=== PATIENT | female | born 1990 | race Caucasian/White ===

== ENCOUNTER 2018-06-07 17:27 | Inpatient (IN) ==
--- NOTE | 2018-06-07 17:59 | Emergency Department Note ---
ED Disposition Clinical Impression: Pyelonephritis, Elevated liver enzymes, Hyperglycemia Disposition: Still a Patient Condition on Discharge: Fair - Critical Care Critical Care Time: No Attestation: On 06/07/18, the high probability of a clinically significant, sudden or life threatening deterioration of the following system(s) required my full and direct attention, intervention and personal management. The time I documented below is in addition to time spent performing reported procedures but includes the following listed in this critical care notation. Medical Decision Making - Ravi Inquiry Pt receiving controlled substance: No Vital Signs: 06/07/18 17:36 06/07/18 17:44 06/07/18 17:58 Temperature 100.5 F H 100.5 F H 100.8 F H Temperature Source Oral Oral Oral Pulse Rate [Left Radial] 135 H 144 H 138 H Respiratory Rate 20 20 18 Blood Pressure [Right Arm] 115/76 121/84 144/78 Blood Pressure Mean [Right Arm] 89 96 100 Blood Pressure Source [Right Arm] Automatic Cuff Automatic Cuff Automatic Cuff Blood Pressure Position [Right Arm] Sitting Sitting Sitting 02 Sat by Pulse Oximetry 96 99 97 Oxygen Delivery Method Room Air Room Air Room Air 06/07/18 18:28 Temperature 100 F H Temperature Source Oral Pulse Rate [Left Radial] 143 H Respiratory Rate 14 Blood Pressure [Right Arm] 149/84 Blood Pressure Mean [Right Arm] 105 Blood Pressure Source [Right Arm] Automatic Cuff Blood Pressure Position [Right Arm] Sitting 02 Sat by Pulse Oximetry 96 Oxygen Delivery Method Room Air - Lab Data Lab Results 06/07/18 17:44: Influenza Type A Ag Negative, Influenza Type B Ag Negative 06/07/18 17:57: Strep Scn Rapid [facility] Negative 06/07/18 18:15: WBC 4.0 L, RBC 5.09, Hgb 14.5, Hct 42.5, MCV 83.5, MCH 28.4, MCHC 34.1, RDW 12.6, Plt Count 183, MPV 8.5, Neut % (Auto) 86.0 H, Lymph % (Auto) 10.6, [place] % (Auto) 2.9, Eos % (Auto) 0.5, Baso % (Auto) 0.1, Neut # (Auto) 3.4, Lymph # (Auto) 0.4 L, [place] # (Auto) 0.1, Eos # (Auto) 0.0, Baso # (Auto) 0.0, Total Counted 100, Neutrophils % (Manual) 44, Band Neutrophils % 40.0 H, Lymphocytes % (Manual) 16, Platelet Estimate Normal, RBC Morphology Normal 06/07/18 18:15: Sodium 128 L, Potassium 3.6, Chloride 92 L, Carbon Dioxide 26, Anion Gap 13.6, BUN 12, Creatinine 1.07 H, Estimated Creat Clear 76, Estimated GFR 62, Est GFR ( Amer) 75, Glucose 577 H*, Calcium 9.2, Total Bilirubin 2.0 H, AST 145 H, ALT 160 H, Alkaline Phosphatase 303 H, Total Protein 8.0, Albumin 3.1 L, Globulin 4.9 H, Albumin/Globulin Ratio 0.6 L 06/07/18 18:15: Lactate 1.9 06/07/18 18:15: Hemoglobin A1c 12.6 H 06/07/18 18:15: Acetone Level None detected 06/07/18 18:15: Lipase 147 06/07/18 18:48: VBG pH 7.34, VBG pCO2 46.8, VBG pO2 46.3 H, VBG HCO3 24.9, VBG Total CO2 26.3, VBG O2 Saturation 81.3 H, VBG Base Excess -0.9 06/07/18 19:19: Urine Color Yellow, Urine Appearance Sl cloudy, Urine pH 6.0, Ur Specific [place] 1.010, Urine Protein Trace, Urine Glucose (UA) 3+, Urine Ketones 2+, Urine Blood 2+, Urine Nitrate Positive, Urine Bilirubin Negative, U rine Urobilinogen 0.2, Ur Leukocyte Esterase Negative, Urine RBC 10-20, Urine WBC 20-50, Ur Squamous Epith Cells 5-10, Urine Bacteria 2+ 06/07/18 19:19: Urine HCG, Qual Negative Result diagrams: 06/07/18 18:15 06/07/18 18:15 Orders (Tests/Meds): ED MEDICATIONS Generic Name Dose Route Start Last Admin Trade Name Freq PRN Reason Stop Dose Admin Ceftriaxone Sodium 1 gm/ 50 mls @ 100 mls/hr 06/07/18 20:00 Sodium Chloride IV 06/21/18 19:59 Q24H GREGORY Protocol Discontinued Medications Generic Name Dose Route Start Last Admin Trade Name Freq PRN Reason Stop Dose Admin Ibuprofen 600 mg 06/07/18 18:06 06/07/18 19:51 Motrin 600mg Tablet PO 06/07/18 18:07 600 mg ONCE ONE Administration Insulin Human Lispro 10 unit 06/07/18 18:48 06/07/18 19:03 Humalog 100 Units/Ml 3ml Vial (Ssi) SQ 06/07/18 18:49 10 unit ONCE ONE Administration Sodium Chloride 1,000 ml 06/07/18 18:08 06/07/18 19:03 Sod Chlor 0.9% 1000ml Bag IV 06/07/18 18:09 1,000 ml BOLUS ONE Administration ORDERS Category Date Time Status CT abdomen pelvis wo con Stat Cat Scan 06/07/18 19:02 Ordered Hepatitis Panel (4) Stat Lab 06/07/18 18:15 Received Urinalysis and Microscopic Stat Lab 06/07/18 19:19 Ordered Blood Culture Stat Micro 06/07/18 18:15 Received Strep Screen Confirmation Stat Micro 06/07/18 17:57 Received Urine Culture Stat Micro 06/07/18 19:19 Received Venous Blood Gas Stat RT 06/07/18 18:38 Ordered - Physician Consults Physician Consulted: Penny Time: 19:45 Reason -: Admission Comment/Response: Agrees to admit the patient to the hospital. We discussed the patient's clinical information, including history, exam, laboratory and radiology results and ED course. Per hospital procedure, I will write temporary bridge inpatient orders on the patient. Specific orders requested by the admitting physician: Hydration, Rocephin, sliding scale insulin, gallbladder ult rasound Medical Decision Narrative: 8:00 PM: Abdominal CT scan pending at time of shift change. Admission orders have been written. Dr. Mantilla will follow-up CT scan results and contact Dr. Francis if any significant findings. General Adult HPI - General Stated complaint: Fever, Body aches, Chills, Dizzy Time Seen by Provider: 06/07/18 17:59 Mode of Arrival: Family Vehicle Source of Information: Patient Limitations: No Limitations Description of Symptoms (Recalled from ER Triage Doc. by RN): C/O FEVER,CHILLS,BODY ACHES WITH COUGH AND CHEST DISCOMFORT X 3 DAYS - History of Present Illness HPI narrative: 3 day history of lightheadedness and chills. Has urine frequency, minimal rhinorrhea and cough. No dysuria. No sore throat. No abdominal pain, vomiting, or diarrhea. No known exposures. She took TheraFlu 1 hour ago. She has diabetes. She has not taken any of her medications in months, getting close to a year. Noncompliant with her medications because she is unable to see her doctor due to money issues. She was on insulin and Janumet. She sees Dr. Francis. - Related Data Home Medications Medication Instructions Recorded Confirmed No Known Home Medications 06/07/18 06/07/18 Allergies Allergy/AdvReac Type Severity Reaction Status Date / Time No Known Allergies Allergy Verified 06/07/18 17:48 [facility] History I have reviewed the patient's past medical history: Yes Medical History: Reports:: Diabetes Mellitus Type 2 Denies:: Cancer, Diabetes Mellitus Type 1, MRSA Laterality Cases: Bilateral: Tonsillectomy Amputation: No - Social History Alcohol Intake: never - Psychiatric History Expresses thoughts of harming self/others: None Suicide Plan Description: No Plan ROS Obtained: Yes All systems reviewed & no additional complaints - Constitutional Constitutional: Reports chills, Reports fever(s) - ENT Ears, Nose, Mouth, and Throat: Reports nasal discharge, Denies sore throat - Cardiovascular Cardiovascular: Reports chest pain - Respiratory Respiratory: Yes cough, No dyspnea - Gastrointestinal Gastrointestingal: Denies: abdominal pain, diarrhea, nausea, vomiting - Genitourinary Female Genitourinary: Denies dysuria, Denies flank pain, Reports urinary frequency - Musculoskeletal Musculoskeletal: Reports back pain (upper) - Integumentary/Breasts Skin/Breast: Denies rash Physical Exam - General General appearance: alert, in no apparent distress - Head Head exam: atraumatic, normocephalic, normal inspection - Eye Eye exam: Present: normal appearance, PERRL, EOMI - ENT ENT exam: Present: normal exam, normal oropharynx, mucous membranes moist, TM's normal bilaterally, normal external ear exam - Neck Neck exam: Present: normal inspection, full ROM, trachea midline. Absent: meningismus, lymphadenopathy - Chest Chest inspection: Present: normal inspection, symmetric chest wall rise. Absent: tenderness - Respiratory Respiratory exam: Present: normal lung sounds bilaterally. Absent: respiratory distress - Cardiovascular Cardiovascular exam: Present: regular rate, normal rhythm. Absent: JVD - Abdominal Exam Abdominal exam: Present: soft, normal bowel sounds. Absent: distention, tenderness, guarding - Extremities Exam Extremities exam: Present: normal inspection, full ROM, normal capillary refill. Absent: calf tenderness - Back Exam Back exam: Present: normal inspection. Absent: tenderness, CVA tenderness (R), CVA tenderness (L) - Neurological Exam Neurological exam: Present: alert, oriented X3, CN II-XII intact. Absent: motor sensory deficit - Psychiatric Psychiatric exam: Present: normal affect, normal mood - Skin Skin exam: Present: warm, dry, intact, normal color. Absent: rash - Lymphatic Lymphatic Findings: no adenopathy
[2018-06-07 18:27] LABS: Basophils % 0.1 % (0.1-2.0); Eosinophils % 0.5 % (0.1-12.0); Hematocrit 42.5 % (37.0-47.0); Hemoglobin 14.5 g/dL (12.2-16.2); Lymphocytes # 0.4 K/mm3 (0.7-4.5); Lymphocytes % 10.6 K/mm3 (10-50); Mean Corpuscular HGB Conc 34.1 g/dL (31.8-35.4); Mean Corpuscular Hemoglobin 28.4 pg (27.0-31.2); Mean Corpuscular Volume 83.5 fl (81-99); Mean Platelet Volume 8.5 fl (7.4-10.4); Monocytes # 0.1 K/mm3 (0.1-1.0); Monocytes % 2.9 % (1.7-9.3); Neutrophils # 3.4 K/mm3 (1.8-7.8); Platelet Count 183 K/mm3 (142-424); Red Blood Count 5.09 M/mm3 (4.20-5.40); Red Cell Distribution Width 12.6 % (11.5-17.5)
[2018-06-07 18:35] LABS: Albumin Level 3.1 gm/dL (3.4-5.0); Albumin/Globulin Ratio 0.6 (1.1-1.8); Anion Gap 13.6 mEq/L (5-15); Calcium 9.2 mg/dL (8.5-10.1); Globulin 4.9 gm/dl (1.3-3.2); Potassium 3.6 mmoL/L (3.5-5.1)
[2018-06-07 18:50] LABS: VBG Base Excess -0.9 mmol/L (-2.4-2.3); VBG HCO3 24.9 mmol/L (23-30); VBG Oxygen Saturation 81.3 % (50-70); VBG PCO2 46.8 mmol/L (35-51); VBG PH 7.34 mmol/L (7.31-7.41); VBG PO2 46.3 mmol/L (28-40); VBG Total CO2 26.3 mmol/L (23-27)
[2018-06-07 19:04] LABS: Lymphocytes % 16 % (10-50); Neutrophils % 44 % (42-76); RBC Morphology Normal; Total Cells Counted 100
[2018-06-07 19:24] LABS: Appearance,Urine SL CLOUDY (Clear); Bilirubin,Urine Negative (Negative); Blood, Urine 2+ (Negative); Color,Urine YELLOW (Yellow); Glucose,Urine (UA) 3+ (Negative); Ketones,Urine 2+ (Negative); Leukocyte Esterase,Urine Negative (Negative); Microscopic, Urine URINE MICROSCOPIC (MICROSCOPIC); Protein,Urine TRACE (Negative); Urobilinogen,Urine 0.2 EU/dl (0.2)
[2018-06-07 19:28] LABS: Bacteria,Urine 2+ /lpf; WBC,Urine 20-50 #/hpf (0-3)
[2018-06-08 06:15] LABS: Basophils % 0.1 % (0.1-2.0); Eosinophils % 0.2 % (0.1-12.0); Hematocrit 33.9 % (37.0-47.0); Lymphocytes # 0.6 K/mm3 (0.7-4.5); Lymphocytes % 13.9 K/mm3 (10-50); Mean Corpuscular HGB Conc 36.8 g/dL (31.8-35.4); Mean Corpuscular Hemoglobin 29.8 pg (27.0-31.2); Mean Corpuscular Volume 81.1 fl (81-99); Mean Platelet Volume 8.7 fl (7.4-10.4); Monocytes # 0.2 K/mm3 (0.1-1.0); Monocytes % 3.4 % (1.7-9.3); Neutrophils # 3.7 K/mm3 (1.8-7.8); Neutrophils % 82.5 % (37.0-80.0); Platelet Count 145 K/mm3 (142-424); Red Blood Count 4.17 M/mm3 (4.20-5.40); Red Cell Distribution Width 12.6 % (11.5-17.5); White Blood Count 4.5 K/mm3 (4.8-10.8)
[2018-06-08 06:26] LABS: Hemoglobin 12.5 g/dL (12.2-16.2)
[2018-06-08 06:47] LABS: Albumin Level 2.4 gm/dL (3.4-5.0); Albumin/Globulin Ratio 0.8 (1.1-1.8); Anion Gap 13.5 mEq/L (5-15); Globulin 3.2 gm/dl (1.3-3.2); Potassium 3.5 mmoL/L (3.5-5.1); Total Protein,Serum 5.6 gm/dL (6.4-8.2)
[2018-06-08 06:59] LABS: Calcium 7.8 mg/dL (8.5-10.1)
--- NOTE | 2018-06-08 08:17 | History & Physical Report ---
*Admission Date: 06/07/18 *Chief complaint: Nausea/weakness/fever *History of present illness: 27-year-old white female with type 2 diabetes who has not been to my office in over 9 months and has run out of her medications during that time -she states simply because "I just have not had the time." She also reports a family history of noncompliance and "my family is just hard headed." Regardless, over the past week she has been feeling poorly. Has had fevers, abdominal pain, vomiting with right-sided back pain. Came to the emergency department. Found to be tachycardic, creatinine elevation over baseline, CT scan of the abdomen consistent with right-sided pyelonephritis. Admitted to hospital for IV therapy. Noted to be hyperglycemic but without evidence of acidosis or ketosis in her serum. [facility] History I have reviewed the patient's past medical history: Yes Medical History: Reports:: Diabetes Mellitus Type 2 Denies:: Cancer, Diabetes Mellitus Type 1, MRSA Laterality Cases: Bilateral: Tonsillectomy Other Surgeries: Yes: , Hernia Repair Amputation: No - *Social History Educational Level: Completed High School Smoking Status: Never smoker Alcohol Intake: never Occupational Status: employed - Psychiatric History Expresses thoughts of harming self/others: None Suicide Plan Description: No Plan Review of Systems - Review of Systems Review of systems:: pertinent systems reviewed and negative unless documented below - Constitutional Reports anorexia, Reports body ache(s), Reports chills, Reports fever(s) - Eyes Denies blind spots, Denies blurry vision - ENT Denies abnormal hearing - *Cardiovascular Reports excessive sweating, Denies chest pain, Denies chest pain with activity, Denies shortness of breath with activity, Denies generalized swelling, Denies irregular heart rhythm, Denies leg swelling - *Respiratory Denies change in phlegm color, Denies chest congestion, Denies cough - *Gastrointestinal Reports abdominal pain Meds Home Medications Medication Instructions Recorded Confirmed Type No Known Home Medications 06/07/18 06/07/18 History Allergies Allergy/AdvReac Type Severity Reaction Status Date / Time No Known Allergies Allergy Verified 06/07/18 17:48 Exam Vital signs and Labs for Last 24 Hours: Temp Pulse Resp BP Pulse Ox 98.3 F 126 H 16 117/70 94 L 06/08/18 07:42 06/08/18 07:42 06/08/18 07:42 06/08/18 07:42 06/08/18 07:42 Laboratory Results - last 24 hr 06/07/18 17:44: Influenza Type A Ag Negative, Influenza Type B Ag Negative 06/07/18 17:57: Strep Scn Rapid Clinic Negative 06/07/18 18:15: WBC 4.0 L, RBC 5.09, Hgb 14.5, Hct 42.5, MCV 83.5, MCH 28.4, MCHC 34.1, RDW 12.6, Plt Count 183, MPV 8.5, Neut % (Auto) 86.0 H, Lymph % (Auto) 10.6, [place] % (Auto) 2.9, Eos % (Auto) 0.5, Baso % (Auto) 0.1, Neut # (Auto) 3.4, Lymph # (Auto) 0.4 L, [place] # (Auto) 0.1, Eos # (Auto) 0.0, Baso # (Auto) 0.0, Total Counted 100, Neutrophils % (Manual) 44, Band Neutrophils % 40.0 H, Lymphocytes % (Manual) 16, Platelet Estimate Normal, RBC Morphology Normal 06/07/18 18:15: Sodium 128 L, Potassium 3.6, Chloride 92 L, Carbon Dioxide 26, Anion Gap 13.6, BUN 12, Creatinine 1.07 H, Estimated Creat Clear 76, Estimated GFR 62, Est GFR ( Amer) 75, Glucose 577 H*, Calcium 9.2, Total Bilirubin 2.0 H, AST 145 H, ALT 160 H, Alkaline Phosphatase 303 H, Total Protein 8.0, Albumin 3.1 L, Globulin 4.9 H, Albumin/Globulin Ratio 0.6 L 06/07/18 18:15: Lactate 1.9 06/07/18 18:15: Hemoglobin A1c 12.6 H 06/07/18 18:15: Acetone Level None detected 06/07/18 18:15: Lipase 147 06/07/18 18:48: VBG pH 7.34, VBG pCO2 46.8, VBG pO2 46.3 H, VBG HCO3 24.9, VBG Total CO2 26.3, VBG O2 Saturation 81.3 H, VBG Base Excess -0.9 06/07/18 19:19: Urine Color Yellow, Urine Appearance Sl cloudy, Urine pH 6.0, Ur Specific [place] 1.010, Urine Protein Trace, Urine Glucose (UA) 3+, Urine Ketones 2+, Urine Blood 2+, Urine Nitrate Positive, Urine Bilirubin Negative, Urine Urobilinogen 0.2, Ur Leukocyte Esterase Negative, Urine RBC 10-20, Urine WBC 20-50, Ur Squamous Epith Cells 5-10, Urine Bacteria 2+ 06/07/18 19:19: Urine HCG, Qual Negative 06/07/18 21:16: POC Glucose 270 H 06/08/18 03:28: POC Glucose 173 H 06/08/18 05:55: WBC 4.5 L, RBC 4.17 L, Hgb 12.5 D, Hct 33.9 L, MCV 81.1, MCH 29.8, MCHC 36.8 H, RDW 12.6, Plt Count 145, MPV 8.7, Neut % (Auto) 82.5 H, Lymph % (Auto) 13.9, [place] % (Auto) 3.4, Eos % (Auto) 0.2, Baso % (Auto) 0.1, Neut # (Auto) 3.7, Lymph # (Auto) 0.6 L, [place] # (Auto) 0.2, Eos # (Auto) 0.0, Baso # (Auto) 0.0 06/08/18 05:55: Sodium 135 L, Potassium 3.5, Chloride 103, Carbon Dioxide 22, Anion Gap 13.5, BUN 10, Creatinine 0.52 L D, Estimated Creat Clear 166, Estimated GFR 143, Est GFR ( Amer) 172 D, Glucose 228 H D, Calcium 7.8 L D, Total Bilirubin 1.0, AST 86 H D, ALT 113 H D, Alkaline Phosphatase 266 H, Total Protein 5.6 L D, Albumin 2.4 L D, Globulin 3.2, Albumin/Globulin Ratio 0.8 L 06/08/18 06:00: POC Glucose 212 H I & O for Last 24 hours: Intake & Output 06/05/18 06/06/18 06/07/18 06/08/18 11:59 11:59 11:59 11:59 Intake Total 1188 / 1188 Balance 1188 / 1188 Weight 141 lb Microbiology Reports for the Last 24 Hours: Microbiology 06/07/18 19:19 Urine,Clean Catch Urine Culture - Preliminary Gram Negative Rods Narrative: Patient is pleasant, alert, oriented. This morning is in no distress. Lungs have good air movement and is clear. Heart rate regular without murmurs. ENT exam with clear oropharynx, no JVD, no scleral icterus. She has right-sided CVA tenderness. Left side is clear. No abdominal masses noted. No distal peripheral edema or capillary refill issues. Cranial nerves intact, peripheral neurologic exam unremarkable. Assessment and Plan (1) Medical non-compliance Current visit: Yes Status: Acute Category: Medical Code(s): Z91.19 - Patient's noncompliance with other medical treatment and regimen We will encourage her to be more diligent with follow-up in meds on discharge. (2) Elevated liver enzymes Current visit: Yes Status: Acute Category: Medical Code(s): R74.8 - Abnormal levels of other serum enzymes Improving after hydration. Follow tomorrow. Gallbladder ultrasound and liver ultrasound are unremarkable (3) Hyperglycemia Current visit: Yes Status: Acute Category: Medical Code(s): R73.9 - Hyperglycemia, unspecified Sliding scale insulin. Transition to oral therapy on discharge (4) Pyelonephritis Current visit: Yes Status: Acute Category: Medical Code(s): N12 - Tubulo- interstitial nephritis, not specified as acute or chronic Gram-negative rods on urine culture. Continue IV therapy. Adjust therapy as needed based on culture
--- NOTE | 2018-06-08 08:22 | Progress Note ---
Internal Medicine - PN: Subj *Date: 06/08/18 *Time: 08:22 Interval history: After previous document dictated blood cultures report called from lab, positive for gram-negative rods with PCR showing Klebsiella. Exam Vital signs and Labs for Last 24 Hours: Temp Pulse Resp BP Pulse Ox 98.3 F 126 H 16 117/70 94 L 06/08/18 07:42 06/08/18 07:42 06/08/18 07:42 06/08/18 07:42 06/08/18 07:42 Laboratory Results - last 24 hr 06/07/18 17:44: Influenza Type A Ag Negative, Influenza Type B Ag Negative 06/07/18 17:57: Strep Scn Rapid Clinic Negative 06/07/18 18:15: WBC 4.0 L, RBC 5.09, Hgb 14.5, Hct 42.5, MCV 83.5, MCH 28.4, MCHC 34.1, RDW 12.6, Plt Count 183, MPV 8.5, Neut % (Auto) 86.0 H, Lymph % (Auto) 10.6, [place] % (Auto) 2.9, Eos % (Auto) 0.5, Baso % (Auto) 0.1, Neut # (Auto) 3.4, Lymph # (Auto) 0.4 L, [place] # (Auto) 0.1, Eos # (Auto) 0.0, Baso # (Auto) 0.0, Total Counted 100, Neutrophils % (Manual) 44, Band Neutrophils % 40.0 H, Lymphocytes % (Manual) 16, Platelet Estimate Normal, RBC Morphology Normal 06/07/18 18:15: Sodium 128 L, Potassium 3.6, Chloride 92 L, Carbon Dioxide 26, Anion Gap 13.6, BUN 12, Creatinine 1.07 H, Estimated Creat Clear 76, Estimated GFR 62, Est GFR ( Amer) 75, Glucose 577 H*, Calcium 9.2, Total Bilirubin 2.0 H, AST 145 H, ALT 160 H, Alkaline Phosphatase 303 H, Total Protein 8.0, Albumin 3.1 L, Globulin 4.9 H, Albumin/Globulin Ratio 0.6 L 06/07/18 18:15: Lactate 1.9 06/07/18 18:15: Hemoglobin A1c 12.6 H 06/07/18 18:15: Acetone Level None detected 06/07/18 18:15: Lipase 147 06/07/18 18:48: VBG pH 7.34, VBG pCO2 46.8, VBG pO2 46.3 H, VBG HCO3 24.9, VBG Total CO2 26.3, VBG O2 Saturation 81.3 H, VBG Base Excess -0.9 06/07/18 19:19: Urine Color Yellow, Urine Appearance Sl cloudy, Urine pH 6.0, Ur Specific [place] 1.010, Urine Protein Trace, Urine Glucose (UA) 3+, Urine Ketones 2+, Urine Blood 2+, Urine Nitrate Positive, Urine Bilirubin Negative, Urine Urobilinogen 0.2, Ur Leukocyte Esterase Negative, Urine RBC 10-20, Urine WBC 20-50, Ur Squamous Epith Cells 5-10, Urine Bacteria 2+ 06/07/18 19:19: Urine HCG, Qual Negative 06/07/18 21:16: POC Glucose 270 H 06/08/18 03:28: POC Glucose 173 H 06/08/18 05:55: WBC 4.5 L, RBC 4.17 L, Hgb 12.5 D, Hct 33.9 L, MCV 81.1, MCH 29.8, MCHC 36.8 H, RDW 12.6, Plt Count 145, MPV 8.7, Neut % (Auto) 82.5 H, Lymph % (Auto) 13.9, [place] % (Auto) 3.4, Eos % (Auto) 0.2, Baso % (Auto) 0.1, Neut # (Auto) 3.7, Lymph # (Auto) 0.6 L, [place] # (Auto) 0.2, Eos # (Auto) 0.0, Baso # (Auto) 0.0 06/08/18 05:55: Sodium 135 L, Potassium 3.5, Chloride 103, Carbon Dioxide 22, Anion Gap 13.5, BUN 10, Creatinine 0.52 L D, Estimated Creat Clear 166, Estimated GFR 143, Est GFR ( Amer) 172 D, Glucose 228 H D, Calcium 7.8 L D, Total Bilirubin 1.0, AST 86 H D, ALT 113 H D, Alkaline Phosphatase 266 H, Total Protein 5.6 L D, Albumin 2.4 L D, Globulin 3.2, Albumin/Globulin Ratio 0.8 L 06/08/18 06:00: POC Glucose 212 H I & O for Last 24 hours: Intake & Output 06/05/18 06/06/18 06/07/18 06/08/18 11:59 11:59 11:59 11:59 Intake Total 1548 / 1548 Balance 1548 / 1548 Weight 142 lb 2 oz Microbiology Reports for the Last 24 Hours: Microbiology 06/07/18 18:15 Blood Blood Culture - Preliminary Klebsiella pneumoniae 06/07/18 19:19 Urine,Clean Catch Urine Culture - Preliminary Gram Negative Rods Assessment and Plan (1) Medical non-compliance Current visit: Yes Status: Acute Category: Medical Code(s): Z91.19 - Patient's noncompliance with other medical treatment and regimen (2) Elevated liver enzymes Current visit: Yes Status: Acute Category: Medical Code(s): R74.8 - Abnormal levels of other serum enzymes (3) Hyperglycemia Current visit: Yes Status: Acute Category: Medical Code(s): R73.9 - Hyperglycemia, unspecified (4) Pyelonephritis Current visit: Yes Status: Acute Category: Medical Code(s): N12 - Tubulo- interstitial nephritis, not specified as acute or chronic (5) Bacteremia due to Klebsiella pneumoniae Current visit: Yes Status: Acute Category: Medical Code(s): R78.81 - Bacteremia Continue current antibiotics given patient's improvement. Await sensitivity panels
--- NOTE | 2018-06-08 11:26 | Pharmacy Consult Notes ---
[facility] Pharmacy VTE Monitoring - Patient Demographics Admission date: 06/07/18 Report Date: 06/08/18 Time: 11:26 Allergies/Adverse Reactions: Patient Allergies No Known Allergies Allergy (Verified 06/07/18 17:48) Height: 1.73 m Weight: 64.467 kg Patient Problems: Current Active Problems Pyelonephritis (Acute) Elevated liver enzymes (Acute) Hyperglycemia (Acute) Medical non-compliance (Acute) Bacteremia due to Klebsiella pneumoniae (Acute) - VTE Risk Labs: VTE Related Lab Results Hgb 12.5 g/dL (12.2-16.2) D 06/08/18 05:55 Hct 33.9 % (37.0-47.0) L 06/08/18 05:55 Plt Count 145 K/mm3 (142-424) 06/08/18 05:55 BUN 10 mg/dL (7-18) 06/08/18 05:55 Creatinine 0.52 mg/dL (0.55-1.02) L D 06/08/18 05:55 Estimated Creat Clear 166 mL/min (0-300) 06/08/18 05:55 Was VTE Risk Assessment Performed: Yes VTE Score: 1 - Prophylaxis VTE Prophylaxis Ordered?: Yes Types of VTE Prophylaxis: TEDS Knee High Location of Applied Device: Bilateral Lower Extremeties
--- NOTE | 2018-06-09 08:27 | Progress Note ---
Internal Medicine - PN: Subj *Date: 06/09/18 *Time: 08:26 Interval history: Patient feels somewhat better. Wishes to be discharged home. Is walking around the room and no pain with ambulation. Exam Vital signs and Labs for Last 24 Hours: Temp Pulse Resp BP Pulse Ox 99.0 F 99 H 18 142/95 98 06/09/18 07:42 06/09/18 07:42 06/09/18 07:42 06/09/18 07:42 06/09/18 07:42 Laboratory Results - last 24 hr 06/07/18 19:19: Urine Color Yellow, Urine Appearance Sl cloudy, Urine pH 6.0, Ur Specific [place] 1.010, Urine Protein Trace, Urine Glucose (UA) 3+, Urine Ketones 2+, Urine Blood 2+, Urine Nitrate Positive, Urine Bilirubin Negative, Urine Urobilinogen 0.2, Ur Leukocyte Esterase Negative, Urine RBC 10-20, Urine WBC 20-50, Ur Squamous Epith Cells 5-10, Urine Bacteria 2+ 06/08/18 11:16: POC Glucose 258 H 06/08/18 16:30: POC Glucose 294 H 06/08/18 20:40: POC Glucose 259 H 06/09/18 06:10: POC Glucose 177 H I & O for Last 24 hours: Intake & Output 06/06/18 06/07/18 06/08/18 06/09/18 11:59 11:59 11:59 11:59 Intake Total 1548 / 1548 2790 / 2790 Balance 1548 / 1548 2790 / 2790 Weight 142 lb 2 oz Microbiology Reports for the Last 24 Hours: Microbiology 06/07/18 17:57 Throat Group A Streptococcus Screen (PERLA) - Final Negative for Group A Streptococcus. 06/07/18 18:15 Blood Blood Culture - Preliminary Klebsiella pneumoniae Gram Negative Rods 06/07/18 19:19 Urine,Clean Catch Urine Culture - Final Klebsiella pneumoniae 06/07/18 18:15 Blood Blood Culture - Preliminary Narrative: Oropharynx clear, no JVD. Lungs are clear, no edema noted. Pulse rate regular. CVA tenderness has improved Assessment and Plan (1) Medical non-compliance Current visit: Yes Status: Acute Category: Medical Code(s): Z91.19 - Patient's noncompliance with other medical treatment and regimen (2) Elevated liver enzymes Current visit: Yes Status: Acute Category: Medical Code(s): R74.8 - Abnormal levels of other serum enzymes (3) Hyperglycemia Current visit: Yes Status: Acute Category: Medical Code(s): R73.9 - Hyperglycemia, unspecified (4) Pyelonephritis Current visit: Yes Status: Acute Category: Medical Code(s): N12 - Tubulo- interstitial nephritis, not specified as acute or chronic (5) Bacteremia due to Klebsiella pneumoniae Current visit: Yes Status: Acute Category: Medical Code(s): R78.81 - Bacteremia - Assessment and plan all Dx Assessment and Plan for all problems:: PICC line placement today. We will review sensitivities of Klebsiella. Anticipate possible discharge tonight with finishing up home IV therapy at our infusion unit. We will discharge home on oral antidiabetic agents if PICC line placement is successful today.
--- NOTE | 2018-06-09 16:51 | Discharge Summary ---
General - General Admission date:: 06/07/18 Discharge date: 06/09/18 HPI HPI: 27-year-old white female with type 2 diabetes who has not been to my office in over 9 months and has run out of her medications during that time -she states simply because "I just have not had the time." She also reports a family history of noncompliance and "my family is just hard headed." Regardless, over the past week she has been feeling poorly. Has had fevers, abd ominal pain, vomiting with right-sided back pain. Came to the emergency department. Found to be tachycardic, creatinine elevation over baseline, CT scan of the abdomen consistent with right-sided py elonephritis. Admitted to hospital for IV therapy. Noted to be hyperglycemic but without evidence of acidosis or ketosis in her serum. Hospital Course Hospital Course: Patient was admitted, found to be dehydrated, hyperglycemic but without acidosis or ketosis. Sugar was lowered with sliding scale insulin and with Found to have Klebsiella urinary tract infection/pyelonephritis, pansensitive. Found to have bloodstream infection with Klebsiella, sensitivities are pending. Patient did well through the day today and wished to be discharged. Was eating and drinking. PICC line was placed in the left antecubital fossa without complications. Patient will be discharged home with 1 g ceftriaxone daily for the next 10 days. She will have close follow-up in the office on . We will look over her sensitivity panels at that point. She has previously been on insulin as well as Januvia, she reports that these medicines not help. We will initiate glimepiride therapy twice daily with food and follow this up as an outpatient. Medicine compliance with her glucose monitoring was emphasized. Objective Vital signs: Temp Pulse Resp BP Pulse Ox 98.1 F 97 H 18 123/91 97 06/09/18 15:32 06/09/18 15:32 06/09/18 15:32 06/09/18 15:32 06/09/18 15:32 Narrative: Oropharynx is clear, no JVD. Lungs clear, heart rate regular. Abdomen soft, PICC line in left antecubital fossa looks good. She has no edema or clubbing. She is much better hydrated than previous exams. Results Labs on day of discharge: Labs from last 24 hours 09/10/18 09/10/18 09/09/18 12:27 06:10 20:40 POC Glucose 235 H 177 H 259 H Urine Color Urine Appearance Urine pH Ur Specific [place] Urine Protein Urine Glucose (UA) Urine Ketones Urine Blood Urine Nitrate Urine Bilirubin Urine Urobilinogen Ur Leukocyte Esterase Urine RBC Urine WBC Ur Squamous Epith Cells Urine Bacteria 06/08/18 06/07/18 16:30 19:19 POC Glucose 294 H Urine Color Yellow Urine Appearance Sl cloudy Urine pH 6.0 Ur Specific [place] 1.010 Urine Protein Trace Urine Glucose (UA) 3+ Urine Ketones 2+ Urine Blood 2+ Urine Nitrate Positive Urine Bilirubin Negative Urine Urobilinogen 0.2 Ur Leukocyte Esterase Negative Urine RBC 10-20 Urine WBC 20-50 Ur Squamous Epith Cells 5-10 Urine Bacteria 2+ Preliminary micro results at discharge 06/07/18 18:15 Blood Culture - Preliminary Blood Klebsiella pneumoniae Gram Negative Rods 06/07/18 18:15 Blood Culture - Preliminary Blood DS: Diagnosis - Discharge Diagnosis (1) Medical non-compliance Status: Chronic (2) Elevated liver enzymes Status: Resolved (3) Hyperglycemia Status: Chronic (4) Pyelonephritis Status: Acute (5) Bacteremia due to Klebsiella pneumoniae Status: Acute Discharge Plan - Patient Discharge Instructions ACTIVITY: Continue current activity DIET: continue same diet Patient Instructions: Kidney Infection, Type 2 Diabetes - Follow up Plan Follow up with: Hattie Muñoz APRN [Nurse Practitioner] - 06/12/18 Disposition: Home, Self-Long Term Medications: Home Medications Medication Instructions Recorded Confirmed Type No Known Home Medications 06/07/18 06/07/18 History Prescriptions/Medication Reconciliation: New Glimepiride [Amaryl 2mg tablet] 2 mg OP BID #60 tablet Ceftriaxone Sodium [Rocephin 1gm vial] 1 gm IV Q24H #10 vial No Action No Known Home Medications
[2018-06-10 02:16] LABS: Hepatitis B Core Antibody IgM Negative (Negative); Hepatitis B Surface Antigen Negative (Negative)
[2018-06-10 08:30] LABS: Hepatitis C Antibody <0.1 s/co ratio (0.0-0.9)
== END 2018-06-09 18:37 | disposition home or self-care (01) ==
LOC: 2ND 17:27 → UTC 17:27 → OBSVTOIN 20:30 → 2ND 20:31
PROVIDERS: ADMIT Internal Medicine Adolescent Medicine; ATTEND Internal Medicine Adolescent Medicine

== ENCOUNTER 2018-06-10 15:53 | Outpatient (CLI) | payer MEDICAID, SELFPAY ==
[2018-06-10 15:45] VITALS: BP 118/74; PULSE 84; RESP 18; TEMP 36.6; O2SAT 97
[2018-06-10 16:15] VITALS: BP 120/61; PULSE 88; RESP 18; O2SAT 97
[2018-06-10 16:25] VITALS: BP 119/64; PULSE 87; RESP 18; O2SAT 96
== END 2018-06-10 16:30 | disposition home or self-care (01) ==
LOC: INF 15:53
PROVIDERS: Family Provider Internal Medicine Adolescent Medicine; PCP Internal Medicine Adolescent Medicine; Visit Provider Internal Medicine Adolescent Medicine
DX: N12 Tubulo-interstitial nephritis, not specified as acute or chronic (principal); R78.81 Bacteremia; R73.9 Hyperglycemia, unspecified
CPT/HCPCS: 96365

== ENCOUNTER 2018-06-11 14:55 | Outpatient (CLI) | payer MEDICAID, SELFPAY ==
[2018-06-11 15:05] VITALS: BP 121/77; PULSE 88; RESP 18; TEMP 36.7
[2018-06-11 15:40] VITALS: BP 122/82; PULSE 84; RESP 18
== END 2018-06-11 16:00 | disposition home or self-care (01) ==
LOC: INF 15:24
PROVIDERS: PCP Internal Medicine Adolescent Medicine; Visit Provider Internal Medicine Adolescent Medicine
DX: N12 Tubulo-interstitial nephritis, not specified as acute or chronic (principal); R78.81 Bacteremia
CPT/HCPCS: 96365

== ENCOUNTER 2018-06-12 14:50 | Outpatient (CLI) | payer MEDICAID, SELFPAY ==
[2018-06-12 15:05] VITALS: BP 117/85; PULSE 104; RESP 18; TEMP 36.2
[2018-06-12 15:40] VITALS: BP 113/73; PULSE 98; RESP 16
== END 2018-06-12 16:00 | disposition home or self-care (01) ==
LOC: INF 15:13
PROVIDERS: Family Provider Internal Medicine Adolescent Medicine; PCP Internal Medicine Adolescent Medicine; Visit Provider Internal Medicine Adolescent Medicine
DX: N12 Tubulo-interstitial nephritis, not specified as acute or chronic (principal); R78.81 Bacteremia
CPT/HCPCS: 96365

== ENCOUNTER 2018-06-13 14:53 | Outpatient (CLI) | payer MEDICAID, SELFPAY ==
[2018-06-13 15:27] VITALS: BP 134/85; PULSE 92; RESP 18; TEMP 36.6; O2SAT 98
[2018-06-13 15:31] VITALS: BMI 22.9
[2018-06-13 15:45] LABS: Basophils % 0.2 % (0.1-2.0); Eosinophils # 0.1 K/mm3 (0.0-0.4); Eosinophils % 0.7 % (0.1-12.0); Hematocrit 36.7 % (37.0-47.0); Hemoglobin 11.8 g/dL (12.2-16.2); Lymphocytes # 2.3 K/mm3 (0.7-4.5); Lymphocytes % 33.2 K/mm3 (10-50); Mean Corpuscular HGB Conc 32.3 g/dL (31.8-35.4); Mean Corpuscular Hemoglobin 27.2 pg (27.0-31.2); Mean Corpuscular Volume 84.2 fl (81-99); Mean Platelet Volume 8.5 fl (7.4-10.4); Monocytes # 0.2 K/mm3 (0.1-1.0); Monocytes % 3.6 % (1.7-9.3); Neutrophils # 4.2 K/mm3 (1.8-7.8); Neutrophils % 62.3 % (37.0-80.0); Platelet Count 318 K/mm3 (142-424); Red Blood Count 4.35 M/mm3 (4.20-5.40); Red Cell Distribution Width 13.1 % (11.5-17.5); White Blood Count 6.8 K/mm3 (4.8-10.8)
[2018-06-13 16:02] LABS: Alanine Aminotransferase 44 U/L (12-78); Albumin Level 2.6 gm/dL (3.4-5.0); Albumin/Globulin Ratio 0.6 (1.1-1.8); Alkaline Phosphatase 186 U/L (46-116); Anion Gap 12.6 mEq/L (5-15); Aspartate Amino Transferase 13 U/L (15-37); Bilirubin,Total 0.6 mg/dL (0.2-1.0); Blood Urea Nitrogen 9 mg/dL (7-18); Calcium 8.5 mg/dL (8.5-10.1); Carbon Dioxide 28 mmol/L (21.0-32.0); Chloride 103 mmol/L (98-107); Creatinine Clearance Estimated 145 mL/min (0-300); Creatinine,Serum 0.58 mg/dL (0.55-1.02); Estimated Glomerular Filt Rate 126 ml/min (>60); Free T4 (Free Thyroxine) 1.65 ng/dl (0.76-1.46); GFR (African American) 152 ML/MIN (>60); Globulin 4.6 gm/dl (1.3-3.2); Glucose 244 mg/dL (74-106); Potassium 3.6 mmoL/L (3.5-5.1); Sodium 140 mmol/L (136-145); Total Protein,Serum 7.2 gm/dL (6.4-8.2)
[2018-06-13 16:07] LABS: Thyroid Stimulating Hormone 0.52 uIU/ml (0.358-3.740)
[2018-06-13 16:10] VITALS: BP 126/74; PULSE 85; RESP 18; TEMP 36.6; O2SAT 97
== END 2018-06-13 16:15 | disposition home or self-care (01) ==
LOC: INF 14:54
PROVIDERS: Family Provider Internal Medicine Adolescent Medicine; PCP Internal Medicine Adolescent Medicine; Visit Provider Internal Medicine Adolescent Medicine
DX: N12 Tubulo-interstitial nephritis, not specified as acute or chronic (principal); R78.81 Bacteremia; R73.9 Hyperglycemia, unspecified; E01.0 Iodine-deficiency related diffuse (endemic) goiter
CPT/HCPCS: 80053; 84439; 84443; 85025; 96365

== ENCOUNTER 2018-06-14 14:52 | Outpatient (CLI) | payer MEDICAID, SELFPAY ==
[2018-06-14 15:57] VITALS: BP 125/78; PULSE 76; RESP 18; O2SAT 99
== END 2018-06-14 15:45 | disposition home or self-care (01) ==
LOC: INF 14:52
PROVIDERS: Family Provider Internal Medicine Adolescent Medicine; PCP Internal Medicine Adolescent Medicine; Visit Provider Internal Medicine Adolescent Medicine
DX: N12 Tubulo-interstitial nephritis, not specified as acute or chronic (principal); R78.81 Bacteremia; R73.9 Hyperglycemia, unspecified
CPT/HCPCS: 96365

== ENCOUNTER 2018-06-15 14:51 | Outpatient (CLI) | payer MEDICAID, SELFPAY ==
[2018-06-15 15:07] VITALS: BP 126/74; PULSE 98; RESP 16; O2SAT 98
== END 2018-06-15 15:31 | disposition home or self-care (01) ==
LOC: INF 14:52
PROVIDERS: Family Provider Internal Medicine Adolescent Medicine; PCP Internal Medicine Adolescent Medicine; Visit Provider Internal Medicine Adolescent Medicine
DX: N12 Tubulo-interstitial nephritis, not specified as acute or chronic (principal); R78.81 Bacteremia; R73.9 Hyperglycemia, unspecified
CPT/HCPCS: 96365

== ENCOUNTER 2018-06-16 15:19 | Outpatient (CLI) | payer MEDICAID, SELFPAY ==
[2018-06-16 15:26] VITALS: BP 123/79; PULSE 88; RESP 18; TEMP 36.6; O2SAT 99
[2018-06-16 16:05] VITALS: BP 118/76; PULSE 78; RESP 18; TEMP 36.8; O2SAT 98
== END 2018-06-16 16:05 | disposition home or self-care (01) ==
LOC: INF 15:20
PROVIDERS: Family Provider Internal Medicine Adolescent Medicine; PCP Internal Medicine Adolescent Medicine; Visit Provider Internal Medicine Adolescent Medicine
DX: N12 Tubulo-interstitial nephritis, not specified as acute or chronic (principal); R78.81 Bacteremia; R73.9 Hyperglycemia, unspecified
CPT/HCPCS: 96365

== ENCOUNTER 2018-06-23 12:45 | Outpatient (CLI) | payer MEDICAID, SELFPAY ==
[2018-06-25 16:49] LABS: Thyroid Peroxidase Antibodies 10 IU/mL (0-34)
[2018-06-25 16:50] LABS: Thyroglobulin Level <1.0 IU/mL (0.0-0.9)
[2018-06-25 16:51] LABS: Antipancreatic islet cell antb Negative (Neg:<1:1)
== END 2018-06-23 13:20 | disposition home or self-care (01) ==
LOC: INF 12:45
PROVIDERS: Nurse Practitioner Family; Family Provider Internal Medicine Adolescent Medicine; PCP Internal Medicine Adolescent Medicine; Visit Provider Internal Medicine Adolescent Medicine
DX: Z45.2 Encounter for adjustment and management of vascular access device (principal); E11.65 Type 2 diabetes mellitus with hyperglycemia; Z79.4 Long term (current) use of insulin; R94.6 Abnormal results of thyroid function studies; R78.81 Bacteremia
CPT/HCPCS: 36415; 86341; 86376; 86800; 87040; 96523

== ENCOUNTER → 2018-06-24 08:46 | Outpatient (CLI) | payer MEDICAID, SELFPAY | PROVIDERS: Family Provider Internal Medicine Adolescent Medicine; PCP Internal Medicine Adolescent Medicine; Visit Provider Nurse Practitioner Family | DX: Z71.3 Dietary counseling and surveillance (principal); E11.65 Type 2 diabetes mellitus with hyperglycemia | CPT/HCPCS: 97802; G0108 ==

== ENCOUNTER 2018-06-26 14:28 | Outpatient (CLI) | payer MEDICAID, SELFPAY ==
--- NOTE | 2018-06-26 14:30 | US_ITS ---
US thyroid HISTORY: ITS.REASON: THYROMEGLY ORDERING PHYSICIAN: Hattie Muñoz PATIENT AGE: 27 years Comparison: None FINDINGS: The right lobe is 4.4 x 1.8 x 1.8 cm. There is a 6 x 4 mm well-circumscribed solid-appearing nodule in the mid polar region on the right. 3 mm cyst in the lower pole The left lobe is 4.5 x 1.6 x 1.7 cm. A 3 mm cystic lesion is present in the upper pole, 3 mm cystic lesion in the mid polar region, and a complex 8 x 7 mm cystic spongiform nodule in the lower pole. In addition there is a 9 mm cyst in the lower pole extending into the isthmus. The isthmus is slightly thickened at 5 mm. IMPRESSION: Enlarged thyroid gland with bilateral cystic lesions in the solid 6 mm nodule in the mid polar region on the right and a complex cystic nodule in the lower pole on the left an 8 x 7 mm. Recommend 6 month follow-up to confirm stability of the above-mentioned nodules
== END 2018-06-26 15:50 | disposition home or self-care (01) ==
LOC: RAD 14:28
PROVIDERS: Family Provider Internal Medicine Adolescent Medicine; PCP Internal Medicine Adolescent Medicine; Visit Provider Nurse Practitioner Family
DX: E01.0 Iodine-deficiency related diffuse (endemic) goiter (principal)
CPT/HCPCS: 76536; G0463

== ENCOUNTER → 2018-09-18 07:44 | Outpatient (CLI) | payer MEDICAID, SELFPAY ==
[2018-09-18 08:06] LABS: Basophils % 0.5 % (0.1-2.0); Eosinophils # 0.1 K/mm3 (0.0-0.4); Eosinophils % 1.1 % (0.1-12.0); Hematocrit 44.3 % (37.0-47.0); Hemoglobin 14.5 g/dL (12.2-16.2); Lymphocytes # 3.2 K/mm3 (0.7-4.5); Mean Corpuscular HGB Conc 32.8 g/dL (31.8-35.4); Mean Corpuscular Hemoglobin 27.5 pg (27.0-31.2); Mean Corpuscular Volume 83.8 fl (81-99); Mean Platelet Volume 8.3 fl (7.4-10.4); Monocytes # 0.3 K/mm3 (0.1-1.0); Monocytes % 4.1 % (1.7-9.3); Neutrophils # 3.7 K/mm3 (1.8-7.8); Neutrophils % 50.4 % (37.0-80.0); Platelet Count 335 K/mm3 (142-424); Red Blood Count 5.28 M/mm3 (4.20-5.40); Red Cell Distribution Width 13.4 % (11.5-17.5); White Blood Count 7.3 K/mm3 (4.8-10.8)
[2018-09-18 08:59] LABS: Hemoglobin A1C 8.6 % (0.0-7.0)
[2018-09-18 09:09] LABS: Alanine Aminotransferase 28 U/L (12-78); Albumin Level 3.5 gm/dL (3.4-5.0); Alkaline Phosphatase 54 U/L (46-116); Aspartate Amino Transferase 10 U/L (15-37); Bilirubin,Total 0.8 mg/dL (0.2-1.0); Blood Urea Nitrogen 20 mg/dL (7-18); Calcium 8.6 mg/dL (8.5-10.1); Carbon Dioxide 27 mmol/L (21.0-32.0); Chloride 104 mmol/L (98-107); Creatinine,Serum 0.76 mg/dL (0.55-1.02); Estimated Glomerular Filt Rate 91 ml/min (>60); Free T4 (Free Thyroxine) 1.13 ng/dl (0.76-1.46); GFR (African American) 110 ML/MIN (>60); Globulin 3.4 gm/dl (1.3-3.2); Glucose 193 mg/dL (74-106); Sodium 139 mmol/L (136-145); Thyroid Stimulating Hormone 1.63 uIU/ml (0.358-3.740); Total Protein,Serum 6.9 gm/dL (6.4-8.2)
== END ==
PROVIDERS: Visit Provider Internal Medicine Adolescent Medicine
DX: E01.0 Iodine-deficiency related diffuse (endemic) goiter (principal); R94.6 Abnormal results of thyroid function studies; E11.65 Type 2 diabetes mellitus with hyperglycemia
CPT/HCPCS: 36415; 80053; 83036; 84439; 84443; 85025

== ENCOUNTER → 2019-01-09 09:47 | Outpatient (CLI) | payer MEDICAID, SELFPAY ==
--- NOTE | 2019-01-09 09:51 | US_ITS ---
US thyroid HISTORY: Follow-up thyroid nodules ITS.REASON: THYROID NODULE ORDERING PHYSICIAN: Tamiko Hills PATIENT AGE: 28 years Comparison: None FINDINGS: The right lobe is 4.5 x 1.5 x 1.8 cm. There is a 5 x 4 mm hypoechoic nodule superiorly unchanged. A 3 mm bilocular cystic nodule present in the midpole. A 3 mm cyst is present in the lower pole. The isthmus is slightly thickened at 6 mm. There is a 9 x 8 mm cyst in the isthmus the left unchanged. The left lobe is 4.8 x 1.4 x 1.7 cm. A complex 5 x 4 mm nodule is present in the upper pole unchanged. Complex 7 x 4 mm nodule in the mid polar region. Complex 9 x 7 mm nodule in the lower pole unchanged. IMPRESSION: No change in the multiple thyroid nodules with mild thyromegaly.
== END ==
PROVIDERS: PCP Nurse Practitioner Family; Visit Provider Nurse Practitioner Family
DX: E04.1 Nontoxic single thyroid nodule (principal)
CPT/HCPCS: 76536

== ENCOUNTER → 2019-03-11 10:23 | Outpatient (CLI) | payer MEDICAID, SELFPAY ==
[2019-03-11 12:10] LABS: Basophils # 0.1 K/mm3 (0-0.2); Basophils % 0.5 % (0.1-2.0); Eosinophils # 0.1 K/mm3 (0.0-0.4); Eosinophils % 0.6 % (0.1-12.0); Hematocrit 43.3 % (37.0-47.0); Hemoglobin 14.1 g/dL (12.2-16.2); Lymphocytes # 2.6 K/mm3 (0.7-4.5); Lymphocytes % 27.2 % (10-50); Mean Corpuscular HGB Conc 32.5 g/dL (31.8-35.4); Mean Corpuscular Hemoglobin 26.6 pg (27.0-31.2); Mean Platelet Volume 8.2 fl (7.4-10.4); Monocytes # 0.4 K/mm3 (0.1-1.0); Monocytes % 3.8 % (1.7-9.3); Neutrophils # 6.6 K/mm3 (1.8-7.8); Neutrophils % 67.9 % (37.0-80.0); Platelet Count 328 K/mm3 (142-424); Red Blood Count 5.28 M/mm3 (4.20-5.40); Red Cell Distribution Width 12.6 % (11.5-17.5); White Blood Count 9.7 K/mm3 (4.8-10.8)
[2019-03-11 12:36] LABS: Albumin Level 3.5 gm/dL (3.4-5.0); Blood Urea Nitrogen 15 mg/dL (7-18); Chloride 102 mmol/L (98-107); Globulin 3.6 gm/dl (1.3-3.2); Potassium 4.3 mmoL/L (3.5-5.1); Sodium 139 mmol/L (136-145); Total Protein,Serum 7.1 gm/dL (6.4-8.2)
[2019-03-11 12:58] LABS: Alanine Aminotransferase 67 U/L (12-78); Alkaline Phosphatase 80 U/L (46-116); Anion Gap 13.3 mEq/L (5-15); Aspartate Amino Transferase 25 U/L (15-37); Bilirubin,Total 1.1 mg/dL (0.2-1.0); Calcium 8.9 mg/dL (8.5-10.1); Carbon Dioxide 28 mmol/L (21.0-32.0); Chol/HDL Ratio 4.4 (1-3.5); Cholesterol 219 mg/dL (140-200); Creatinine,Serum 0.75 mg/dL (0.55-1.02); Estimated Glomerular Filt Rate 93 ml/min (>60); Free Thyroxine Index 2.4 ug/dL (5.93-13.13); GFR (African American) 112 ML/MIN (>60); Glucose 134 mg/dL (74-106); HDL Cholesterol 50 mg/dL (29-89); LDL Cholesterol 140 mg/dL (0-130); T4 (Thyroxine) 8.1 ug/dl (4.7-13.3); Thyroid Stimulating Hormone 1.25 uIU/ml (0.358-3.740); Triglycerides 146 mg/dL (30-200); Triiodothryronine (T3) Uptake 30 % (31-39); VLDL Cholesterol 29 mg/dL (0-40)
[2019-03-11 15:50] LABS: Hemoglobin A1C 8.5 % (0.0-7.0)
== END ==
PROVIDERS: Visit Provider Internal Medicine Adolescent Medicine
DX: E11.65 Type 2 diabetes mellitus with hyperglycemia (principal); E01.0 Iodine-deficiency related diffuse (endemic) goiter; Z79.84 Long term (current) use of oral hypoglycemic drugs
CPT/HCPCS: 36415; 80053; 80061; 83036; 84436; 84443; 84479; 85025

== ENCOUNTER → 2019-12-07 15:50 | Outpatient (CLI) | payer OTHER, SELFPAY ==
--- NOTE | 2019-12-07 15:57 | XR_ITS ---
PROCEDURE: XR CHEST 2V CLINICAL HISTORY: COUGH,FEVER/CHILLS Cough fever and chills COMPARISON: CXR CHEST(2 VIEWS-NOT PORTABLE) from 03/25/2017 CXR2V XR chest 2V from 06/07/2018 [id number] XR chest portable PICC plac from 06/09/2018 FINDINGS: The cardiomediastinal silhouette and pulmonary vascularity are within normal limits. The lungs are clear without infiltrates, suspicious nodules, or pleural effusions. No acute bony abnormalities. IMPRESSION: No acute findings. Dictated by: Tahir Grimes MD 12/07/2019 17:16 Electronically signed by Tahir Grimes MD in [place] 12/07/2019 17:16
[2019-12-07 16:13] LABS: Adenovirus,PCR Not Detected (NotDetected); Bordetella Pertussis Not Detected (NotDetected); Chlamydophila Pneumoniae, PCR Not Detected (NotDetected); Coronavirus 229E Not Detected (NotDetected); Coronavirus NL63 Not Detected (NotDetected); Coronavirus OC43 Not Detected (NotDetected); Coronovirus HKU1,PCR Not Detected (NotDetected); Human Metapneumovirus Not Detected (NotDetected); Influenza A, PCR Not Detected (NotDetected); Influenza AH1, 2009 Not Detected (NotDetected); Influenza AH1, PCR Not Detected (NotDetected); Influenza AH3,PCR Not Detected (NotDetected); Influenza B, PCR Not Detected (NotDetected); Mycoplasma Pneumoniae, PCR Not Detected (NotDetected); Parainfluenza 1, PCR Not Detected (NotDetected); Parainfluenza 2, PCR Not Detected (NotDetected); Parainfluenza 3, PCR Not Detected (NotDetected); Parainfluenza 4, PCR Not Detected (NotDetected); Respiratory Syncytial Virus Not Detected (NotDetected); Rhinovirus/Enterovirus Not Detected (NotDetected)
[2019-12-07 17:09] LABS: Basophils % 0.3 % (0.1-2.0); Eosinophils # 0.1 K/mm3 (0.0-0.4); Eosinophils % 0.6 % (0.1-12.0); Hematocrit 45.3 % (37.0-47.0); Hemoglobin 14.8 g/dL (12.2-16.2); Lymphocytes # 2.2 K/mm3 (0.7-4.5); Lymphocytes % 29.8 % (10-50); Mean Corpuscular HGB Conc 32.7 g/dL (31.8-35.4); Mean Corpuscular Hemoglobin 27.6 pg (27.0-31.2); Mean Corpuscular Volume 84.2 fl (81-99); Mean Platelet Volume 8.7 fl (7.4-10.4); Monocytes # 0.2 K/mm3 (0.1-1.0); Monocytes % 3.1 % (1.7-9.3); Neutrophils # 4.9 K/mm3 (1.8-7.8); Neutrophils % 66.2 % (37.0-80.0); Platelet Count 344 K/mm3 (142-424); Red Blood Count 5.38 M/mm3 (4.20-5.40); Red Cell Distribution Width 12.3 % (11.5-17.5); White Blood Count 7.4 K/mm3 (4.8-10.8)
[2019-12-07 17:46] LABS: Chloride 98 mmol/L (98-107); Potassium 4.1 mmoL/L (3.5-5.1); Sodium 134 mmol/L (136-145)
[2019-12-07 17:48] LABS: Alanine Aminotransferase 16 U/L (12-78); Aspartate Amino Transferase 21 U/L (14-36); Bilirubin,Total 1.1 mg/dl (0.2-1.3); Blood Urea Nitrogen 12 mg/dl (7-17); Estimated Glomerular Filt Rate 147 ml/min (>60); GFR (African American) 178 ML/MIN (>60)
[2019-12-07 17:49] LABS: Albumin Level 4.3 g/dl (3.5-5.0); Albumin/Globulin Ratio 1.5 (1.1-1.8); Alkaline Phosphatase 73 U/L (38-126); Anion Gap 15.1 mEq/L (5-15); Calcium 9.8 mg/dl (8.4-10.2); Carbon Dioxide 25 mmol/L (22.0-30.0); Cholesterol 251 mg/dl (140-200); Globulin 2.8 g/dL (1.3-3.2); Glucose 262 mg/dl (74-100); HDL Cholesterol 42 mg/dl (40-60); Total Protein,Serum 7.1 g/dl (6.3-8.2); Triglycerides 147 mg/dl (30-150); VLDL Cholesterol 29 mg/dL (0-40)
[2019-12-07 18:00] LABS: Direct LDL Cholesterol 198.46 mg/dL (100-129)
[2019-12-07 19:19] LABS: Hemoglobin A1C 13.7 % (4.0-6.0)
== END ==
PROVIDERS: PCP Internal Medicine Adolescent Medicine; Visit Provider Internal Medicine Adolescent Medicine
DX: R05 Cough (principal); R50.9 Fever, unspecified; J06.9 Acute upper respiratory infection, unspecified; E11.65 Type 2 diabetes mellitus with hyperglycemia; Z79.84 Long term (current) use of oral hypoglycemic drugs
CPT/HCPCS: 36415; 71046; 80053; 80061; 83036; 85025; 87486; 87581; 87633; 87798

== ENCOUNTER → 2020-07-30 10:47 | Outpatient (CLI) | payer OTHER, SELFPAY ==
[2020-07-30 11:28] LABS: Basophils % 0.3 % (0.1-2.0); Eosinophils # 0.1 K/mm3 (0.0-0.4); Eosinophils % 0.5 % (0.1-12.0); Hemoglobin 16.2 g/dL (12.2-16.2); Lymphocytes # 2.2 K/mm3 (0.7-4.5); Lymphocytes % 20.9 % (10-50); Mean Corpuscular Hemoglobin 28.3 pg (27.0-31.2); Mean Corpuscular Volume 85.8 fl (81-99); Mean Platelet Volume 8.8 fl (7.4-10.4); Monocytes # 0.4 K/mm3 (0.1-1.0); Monocytes % 3.3 % (1.7-9.3); Neutrophils # 7.8 K/mm3 (1.8-7.8); Platelet Count 384 K/mm3 (142-424); Red Blood Count 5.71 M/mm3 (4.20-5.40); Red Cell Distribution Width 12.6 % (11.5-17.5); White Blood Count 10.4 K/mm3 (4.8-10.8)
[2020-07-30 12:07] LABS: Hemoglobin A1C 13.3 % (4.0-6.0)
[2020-07-30 12:56] LABS: Chloride 98 mmol/L (98-107); Potassium 4.6 mmoL/L (3.5-5.1); Sodium 135 mmol/L (136-145)
[2020-07-30 12:58] LABS: Blood Urea Nitrogen 10 mg/dl (7-17); Estimated Glomerular Filt Rate 119 ml/min (>60); GFR (African American) 144 ML/MIN (>60)
[2020-07-30 12:59] LABS: Alanine Aminotransferase 25 U/L (12-78); Albumin Level 4.4 g/dl (3.5-5.0); Albumin/Globulin Ratio 1.5 (1.1-1.8); Alkaline Phosphatase 104 U/L (38-126); Anion Gap 14.6 mEq/L (5-15); Aspartate Amino Transferase 27 U/L (14-36); Bilirubin,Total 1.2 mg/dl (0.2-1.3); Calcium 9.6 mg/dl (8.4-10.2); Carbon Dioxide 27 mmol/L (22.0-30.0); Glucose 353 mg/dl (74-100); Total Protein,Serum 7.4 g/dl (6.3-8.2)
[2020-07-30 13:30] LABS: Thyroid Stimulating Hormone 0.96 uIU/mL (0.465-4.68)
== END ==
PROVIDERS: Visit Provider Nurse Practitioner Family
DX: E01.0 Iodine-deficiency related diffuse (endemic) goiter (principal); E11.65 Type 2 diabetes mellitus with hyperglycemia; Z79.84 Long term (current) use of oral hypoglycemic drugs
CPT/HCPCS: 36415; 80053; 83036; 84443; 85025

== ENCOUNTER → 2020-08-23 14:13 | Outpatient (CLI) | payer OTHER, SELFPAY ==
--- NOTE | 2020-08-23 14:16 | US_ITS ---
PROCEDURE: US THYROID CLINICAL INDICATION: THYRMEGALY,THYROID NODULE COMPARISON: US THY US thyroid from 01/09/2019 FINDINGS: Right lobe: 4.4 x 1.5 x 1.7 cm. There is a 6 mm solid nodule in the mid polar region on the right unchanged. A 3 mm cyst is present in the lower pole on the right unchanged. There is an additional 3 mm cyst in the lower pole benign-appearing. A 4 mm septated cystic areas present in the lower pole unchanged Left lobe: 4.5 x 1.2 x 1.8 cm. Complex 5 x 4 mm nodules present in the upper pole on the left unchanged. 4 mm septated cyst in the mid polar region benign-appearing. 9 combined cystic and solid nodule in the lower pole unchanged Isthmus: There is a cystic nodule in the isthmus at 9 x 6 mm not significantly changed. Additional findings: IMPRESSION: Stable ultrasound appearance of the thyroid gland with multiple bilateral probably benign nodules. Thyroid gland is slightly enlarged Dictated by: Tahir Grimes MD 08/23/2020 17:21 Tahir Grimes MD in [place] 08/23/2020 17:21
== END ==
PROVIDERS: PCP Nurse Practitioner Family; Visit Provider Internal Medicine Adolescent Medicine
DX: E01.0 Iodine-deficiency related diffuse (endemic) goiter (principal); E04.1 Nontoxic single thyroid nodule
CPT/HCPCS: 76536

== ENCOUNTER 2020-10-18 09:01 | Emergency (ER) | payer OTHER, SELFPAY ==
[2020-10-18 09:10] VITALS: BP 116/78; PULSE 98; RESP 19; TEMP 36.4; O2SAT 100; BMI 27.1
--- NOTE | 2020-10-18 09:37 | HMH.EDUTC ---
[facility] [place] Disposition Clinical Impression: Close exposure to COVID-19 virus Disposition: Home, Self-Care Condition on Discharge: Good Instructions: DI for COVID-19 (Suspected or Confirmed ), Coronavirus Disease 2019, Preventing the Spread of Coronavirus Discharge Instructions Additional Instructions: *Monitor Temp, Over the counter Motrin or Tylenol as directed/as needed Tylenol every 4 hours and Motrin every 6 hours (as long as your family doctor has told you that you can take it) for fever or pain. and straight to ER if unable to lower temp less than 101.0 after medication given Follow up IMMEDIATELY for new or worsening symptoms or no Noticeable improvement over the next 48-72 hours. 911 for difficulty breathing or swallowing You were tested for today for COVID19 your test result should be back in the next 24-48 hours, you may call to the [facility] to see if your test results are back in the next 48 hours [phone] [facility] hours are 9am-9pm You was given a handout with instructions for Self Quarantine and Self isolation for while you wait on test results and what to do if they are positive If you are positive the Health Dept will be contacting you also Referrals: Jesse Francis MD [Primary Care Provider] - As needed Forms: Work/School Release Time of Disposition: 09:39 Medical Decision Making - Ravi Inquiry Pt receiving controlled substance: No Ravi was queried for this patient: No Vital Signs: 10/18/20 09:10 Temperature 97.6 F Temperature Source Oral Pulse Rate [Right Brachial] 98 H Respiratory Rate 19 Blood Pressure [Right Arm] 116/78 Blood Pressure Mean [Right Arm] 90 Blood Pressure Source [Right Arm] Automatic Cuff Blood Pressure Position [Right Arm] Sitting 02 Sat by Pulse Oximetry 100 Oxygen Delivery Method Room Air Orders (Tests/Meds): ORDERS Category Date Time Status Covid-19 Nasal PCR Sendout P&[facility] Stat Lab 10/18/20 09:09 Ordered [facility] HPI - General Stated complaint: Covid test Time Seen by Provider: 10/18/20 09:37 Mode of Arrival: Ambulatory Source of Information: Patient Limitations: No Limitations Description of Symptoms (Recalled from Triage Doc. by RN): COVID D/T EXPOSURE; DENIES SYMPTOMS HEENT Symptoms (Recalled from RN notes): No Resp Symptoms (Recalled from RN notes): No Skin Symptoms (Recalled from RN notes): No MS Symptoms (Recalled from RN notes): No Functional Status (Recalled from RN notes): WNL - History of Present Illness Provider Complaint: Patient states that she was recently in the vehicle with someone that has since tested positive for COVID State that she is not having any symptoms but wanted to get tested - Related Data Previous Rx's Medication Instructions Recorded metformin 500 mg tablet,extended 500 mg PO DAILY #30 tab 03/23/20 release 24 hr escitalopram oxalate 20 mg tablet 20 mg PO DAILY #30 tab 03/24/20 hydroxyzine pamoate 25 mg capsule 25 mg PO TID PRN #60 cap 03/24/20 Allergies Allergy/AdvReac Type Severity Reaction Status Date / Time No Known Allergies Allergy Verified 03/23/20 09:51 - Worker's Comp Is this a Worker's Comp case?: No [facility] History - Hepatitis A Screen Drug use history?: No High risk sexual behaviors?: No History of sexually transmitted infection?: No Currently employed?: No Childcare worker?: No Do you have indoor plumbing?: Yes Do you have electricity?: Yes Attestation statement:: This patient has been screened for Hepatitis A risk factors. I have reviewed the patient's past medical history: Yes Medical History: Reports:: Diabetes Mellitus Type 2 Denies:: Cancer, Diabetes Mellitus Type 1, MRSA Laterality Cases: Bilateral: Tonsillectomy Other Surgeries: Yes: , Hernia Repair Amputation: No - Social History Smoking Status: Never smoker Alcohol Intake: never Occupational Status: employed ROS Obtained: Yes All systems reviewed & no additional complaints, Yes Systems reviewed as appropriate & no
[2020-10-18 09:40] VITALS: BP 116/78; PULSE 98; RESP 19; TEMP 36.4; O2SAT 100
[2020-10-19 08:33] LABS: Covid-19 Nasal PCR Sendout P&C NEGATIVE
== END 2020-10-18 09:48 | disposition home or self-care (01) ==
PROVIDERS: Emergency Provider Nurse Practitioner; PCP Internal Medicine Adolescent Medicine
DX: Z20.822 Contact with and (suspected) exposure to COVID-19 (principal); E11.9 Type 2 diabetes mellitus without complications; Z79.84 Long term (current) use of oral hypoglycemic drugs
CPT/HCPCS: 99202; G0463; U0004

== ENCOUNTER 2021-06-11 17:28 | Emergency (ER) | payer OTHER, SELFPAY ==
[2021-06-11 18:02] VITALS: PULSE 105; RESP 14; TEMP 36.9; O2SAT 100; BMI 23.1
--- NOTE | 2021-06-11 18:16 | HMH.EDUTC ---
[facility] [place] Disposition Clinical Impression: Exposure to COVID-19 virus Disposition: Home, Self-Care Condition on Discharge: Good Instructions: Preventing the Spread of Coronavirus Discharge Instructions Additional Instructions: You have been tested for COVID19. Based on exposure, you need to quarantine for at least 7 days. Your results will be available on the portal when complete. Referrals: Jesse Francis MD [Primary Care Provider] - Time of Disposition: 18:20 Medical Decision Making - Ravi Inquiry Pt receiving controlled substance: No Vital Signs: 06/11/21 18:02 Temperature 98.5 F Temperature Source Oral Pulse Rate [Left] 105 H Respiratory Rate 14 02 Sat by Pulse Oximetry 100 [facility] [place] HPI - General Stated complaint: covid test Time Seen by Provider: 06/11/21 18:16 Mode of Arrival: Ambulatory Source of Information: Patient Limitations: No Limitations Description of Symptoms (Recalled from Triage Doc. by RN): covid test. exposure. asymptomatic. HEENT Symptoms (Recalled from RN notes): No Resp Symptoms (Recalled from RN notes): No Skin Symptoms (Recalled from RN notes): No MS Symptoms (Recalled from RN notes): No Functional Status (Recalled from RN notes): na - History of Present Illness Provider Complaint: Patient found out today that she was exposed to COVID19 3 days ago. She is currently showing no symptoms. Onset (ago): day(s) (3) Relieving factors: none Exacerbating factors: none Associated symptoms: denies other symptoms Treatments prior to arrival: none - Related Data Previous Rx's Medication Instructions Recorded metformin 500 mg tablet,extended 500 mg PO DAILY #30 tab 03/23/20 release 24 hr escitalopram oxalate 20 mg tablet 20 mg PO DAILY #30 tab 03/24/20 hydroxyzine pamoate 25 mg capsule 25 mg PO TID PRN #60 cap 03/24/20 Allergies Allergy/AdvReac Type Severity Reaction Status Date / Time No Known Allergies Allergy Verified 03/23/20 09:51 - Worker's Comp Is this a Worker's Comp case?: No [facility] History - Hepatitis A Screen Drug use history?: No High risk sexual behaviors?: No History of sexually transmitted infection?: No Currently employed?: No Childcare worker?: No Do you have indoor plumbing?: Yes Do you have electricity?: Yes Attestation statement:: This patient has been screened for Hepatitis A risk factors. I have reviewed the patient's past medical history: Yes Medical History: Reports:: Diabetes Mellitus Type 2 Denies:: Cancer, Diabetes Mellitus Type 1, MRSA Laterality Cases: Bilateral: Tonsillectomy Other Surgeries: Yes: , Hernia Repair Amputation: No - Social History Smoking Status: Never smoker Alcohol Intake: never Occupational Status: employed ROS Obtained: Yes All systems reviewed & no additional complaints Physical Exam - General General appearance: alert, in no apparent distress - Head Head exam: atraumatic, normocephalic - Eye Eye exam: Present: PERRL - ENT ENT exam: Present: normal oropharynx - Chest Chest inspection: Present: normal inspection, symmetric chest wall rise - Respiratory Respiratory exam: Present: normal lung sounds bilaterally - Cardiovascular Cardiovascular exam: Present: regular rate, normal rhythm - Neurological Exam Neurological exam: Present: alert, oriented X3 - Psychiatric Psychiatric exam: Present: normal affect, normal mood - Skin Skin exam: Present: warm, dry, intact
[2021-06-11 18:29] VITALS: BP 156/91; PULSE 105; RESP 14; TEMP 36.9
--- NOTE | 2021-06-12 09:16 | PC.NURSE ---
PATIENT NOTIFIED OF POSITIVE COVID TEST AT THIS TIME
== END 2021-06-11 18:29 | disposition home or self-care (01) ==
PROVIDERS: Emergency Provider Physician Assistant; PCP Internal Medicine Adolescent Medicine
DX: U07.1 COVID-19 (principal); E11.9 Type 2 diabetes mellitus without complications
CPT/HCPCS: 99202; C9803; G0463; U0003; U0005

== ENCOUNTER → 2021-07-19 14:56 | Outpatient (CLI) | payer OTHER, SELFPAY | PROVIDERS: Visit Provider Internal Medicine Adolescent Medicine | DX: R82.90 Unspecified abnormal findings in urine (principal) | CPT/HCPCS: 87086; 87088; 87186 ==

== ENCOUNTER 2021-07-23 20:58 | Emergency (ER) | payer OTHER, SELFPAY ==
[2021-07-23 21:00] VITALS: BP 113/65; PULSE 73; RESP 18; TEMP 36.7; O2SAT 99; BMI 23.3
[2021-07-23 21:24] LABS: Basophils # 0.1 K/mm3 (0-0.2); Basophils % 1.4 % (0.1-2.0); Eosinophils # 0.1 K/mm3 (0.0-0.4); Eosinophils % 0.9 % (0.1-12.0); Hematocrit 44.4 % (37.0-47.0); Hemoglobin 14.9 g/dL (12.2-16.2); Lymphocytes # 3.2 K/mm3 (0.7-4.5); Lymphocytes % 38.3 % (10-50); Mean Corpuscular HGB Conc 33.6 g/dL (31.8-35.4); Mean Corpuscular Hemoglobin 28.7 pg (27.0-31.2); Mean Corpuscular Volume 85.4 fl (81-99); Mean Platelet Volume 9.1 fl (7.4-10.4); Monocytes # 0.3 K/mm3 (0.1-1.0); Monocytes % 3.1 % (1.7-9.3); Neutrophils # 4.8 K/mm3 (1.8-7.8); Neutrophils % 56.3 % (37.0-80.0); Platelet Count 361 K/mm3 (142-424); Red Cell Distribution Width 12.7 % (11.5-17.5); White Blood Count 8.5 K/mm3 (4.8-10.8)
[2021-07-23 21:28] LABS: Alanine Aminotransferase 27 U/L (12-78); Albumin Level 4.4 g/dl (3.5-5.0); Albumin/Globulin Ratio 1.4 (1.1-1.8); Alkaline Phosphatase 77 U/L (38-126); Anion Gap 12.5 mEq/L (5-15); Aspartate Amino Transferase 37 U/L (14-36); Bilirubin,Total 0.8 mg/dl (0.2-1.3); Blood Urea Nitrogen 8 mg/dl (7-17); Calcium 9.2 mg/dl (8.4-10.2); Carbon Dioxide 26 mmol/L (22.0-30.0); Chloride 98 mmol/L (98-107); Creatinine Clearance Estimated 215 mL/min (50-200); Estimated Glomerular Filt Rate 189 ml/min (>60); GFR (African American) 228 ML/MIN (>60); Globulin 3.2 g/dL (1.3-3.2); Glucose 330 mg/dl (74-100); Potassium 3.5 mmoL/L (3.5-5.1); Sodium 133 mmol/L (136-145); Total Protein,Serum 7.6 g/dl (6.3-8.2)
--- NOTE | 2021-07-23 21:39 | HMH.EDGENADL ---
ED Disposition Clinical Impression: Adverse reaction to drug Qualifiers: Encounter type: initial encounter Qualified Code(s): T50.905A - Adverse effect of unspecified drugs, medicaments and biological substances, initial encounter Disposition: Home, Self-Care Condition on Discharge: Good Referrals: Jesse Francis MD [Primary Care Provider] - - Critical Care Critical Care Time: No Attestation: On 07/23/21, the high probability of a clinically significant, sudden or life threatening deterioration of the following system(s) required my full and direct attention, intervention and personal management. The time I documented below is in addition to time spent performing reported procedures but includes the following listed in this critical care notation. Medical Decision Making - Medical Records Medical records reviewed: Yes: I reviewed the patient's medical records. - Ravi Inquiry Pt receiving controlled substance: No Vital Signs: 07/23/21 21:00 Temperature 98.1 F Temperature Source Oral Pulse Rate [Right Brachial] 73 Respiratory Rate 18 Blood Pressure [Right Arm] 113/65 Blood Pressure Mean [Right Arm] 81 Blood Pressure Source [Right Arm] Automatic Cuff Blood Pressure Position [Right Arm] Sitting 02 Sat by Pulse Oximetry 99 Oxygen Delivery Method Room Air - Lab Data Lab Results 07/23/21 21:11: WBC 8.5, RBC 5.20, Hgb 14.9, Hct 44.4, MCV 85.4, MCH 28.7, MCHC 33.6, RDW 12.7, Plt Count 361, MPV 9.1, Neut % (Auto) 56.3, Lymph % (Auto) 38.3, [place] % (Auto) 3.1, Eos % (Auto) 0.9, Baso % (Auto) 1.4, Neut # (Auto) 4.8, Lymph # (Auto) 3.2, [place] # (Auto) 0.3, Eos # (Auto) 0.1, Baso # (Auto) 0.1 07/23/21 21:11: Sodium 133 L, Potassium 3.5, Chloride 98, Carbon Dioxide 26, Anion Gap 12.5, BUN 8, Creatinine 0.40 L, Estimated Creat Clear 215, Estimated GFR 189, Est GFR ( Amer) 228, Glucose 330 H, Calcium 9.2, Total Bilirubin 0.8, AST 37 H, ALT 27, Alkaline Phosphatase 77, Total Protein 7.6, Albumin 4.4, Globulin 3.2, Albumin/Globulin Ratio 1.4 Result diagrams: 07/23/21 21:11 07/23/21 21:11 Medical Decision Narrative: Patient is a 30-year-old female presents the ED today for further evaluation of flushing sensation over the neck after recent initiation of an antibiotic and antidepressant therapy. Patient is well-appearing on initial evaluation in no acute distress with stable vital signs. Patient taking ciprofloxacin and sertraline both of which can cause skin reactions, although this does not appear to be an allergic reaction. Obtain CBC and BMP for further evaluation, with no significant or actionable abnormalities other than hyperglycemia which is known to the patient she is initiating insulin therapy and few days. Patient is on 10-day course of ciprofloxacin, we have advised patient to take 5-day course as her symptoms of her urinary tract infection currently resolved, she is amenable to this plan, has not scheduled appointment with Dr. Carlisle, encouraged to continue to take the sertraline as the symptom is likely to improve over time. Patient is currently on her period, which is regular. Patient's questions answered and concerns addressed, discharged in stable condition with return precautions to return with any new or worsening symptoms. General Adult HPI - General Chief complaint: Allergic Reaction Stated complaint: possib;le reaction to Med, hot flashes,face read Time Seen by Provider: 07/23/21 21:28 Mode of Arrival: Family Vehicle Limitations: No Limitations Description of Symptoms (Recalled from ER Triage Doc. by RN): pt describes a flushing of her anterior chest wall for three days and headache. afraid she is having an allergic reaction to zoloft and cipro that she started 3 days ago. no other symptoms. vss. emv 15.no acute distress. - History of Present Illness HPI narrative: Patient is a 30-year-old female history of diabetes, depression, recent diagnosis of urinary tract infection for which sh
[2021-07-23 21:58] VITALS: BP 121/70; PULSE 73; RESP 17; TEMP 36.8; O2SAT 98
== END 2021-07-23 22:01 | disposition home or self-care (01) ==
PROVIDERS: Emergency Provider Student in an Organized Health Care Education/Training Program; PCP Internal Medicine Adolescent Medicine
DX: L25.8 Unspecified contact dermatitis due to other agents (principal); T43.225A Adverse effect of selective serotonin reuptake inhibitors, initial encounter; T36.8X5A Adverse effect of other systemic antibiotics, initial encounter; R51.9 Headache, unspecified; R07.9 Chest pain, unspecified; E11.9 Type 2 diabetes mellitus without complications; F33.1 Major depressive disorder, recurrent, moderate; N39.0 Urinary tract infection, site not specified
CPT/HCPCS: 80053; 85025; 99281

== ENCOUNTER → 2021-08-07 11:20 | Outpatient (CLI) | payer OTHER, SELFPAY ==
[2021-08-07 12:27] LABS: Hemoglobin A1C 13.3 % (4.0-6.0)
[2021-08-07 13:56] LABS: Chloride 98 mmol/L (98-107); Potassium 4.5 mmoL/L (3.5-5.1); Sodium 136 mmol/L (136-145)
[2021-08-07 13:59] LABS: Alanine Aminotransferase 23 U/L (12-78); Albumin Level 4.5 g/dl (3.5-5.0); Albumin/Globulin Ratio 1.6 (1.1-1.8); Alkaline Phosphatase 85 U/L (38-126); Anion Gap 16.5 mEq/L (5-15); Aspartate Amino Transferase 23 U/L (14-36); Bilirubin,Total 1.1 mg/dl (0.2-1.3); Blood Urea Nitrogen 11 mg/dl (7-17); Calcium 9.6 mg/dl (8.4-10.2); Carbon Dioxide 26 mmol/L (22.0-30.0); Cholesterol 260 mg/dl (140-200); Estimated Glomerular Filt Rate 146 ml/min (>60); GFR (African American) 177 ML/MIN (>60); Globulin 2.8 g/dL (1.3-3.2); Total Protein,Serum 7.3 g/dl (6.3-8.2); Triglycerides 291 mg/dl (30-150); VLDL Cholesterol 58 mg/dL (0-40)
[2021-08-07 14:00] LABS: Chol/HDL Ratio 4.7 (1-3.5); HDL Cholesterol 55 mg/dl (40-60)
[2021-08-07 14:03] LABS: Glucose 445 mg/dl (74-100)
[2021-08-07 14:10] LABS: Direct LDL Cholesterol 172.87 mg/dL (100-129)
== END ==
PROVIDERS: Visit Provider Internal Medicine Adolescent Medicine
DX: E11.65 Type 2 diabetes mellitus with hyperglycemia (principal); Z79.84 Long term (current) use of oral hypoglycemic drugs
CPT/HCPCS: 36415; 80053; 80061; 83036

== ENCOUNTER → 2022-03-08 10:37 | Outpatient (CLI) | payer OTHER, SELFPAY | PROVIDERS: PCP Internal Medicine Adolescent Medicine; Visit Provider Ophthalmology | DX: B58.00 Toxoplasma oculopathy, unspecified (principal) | CPT/HCPCS: 36415 ==

== ENCOUNTER 2022-03-21 09:53 | Emergency (ER) | payer OTHER, SELFPAY ==
[2022-03-21 10:12] VITALS: BP 141/88; PULSE 110; RESP 16; TEMP 36.7; O2SAT 98; BMI 20.5
--- NOTE | 2022-03-21 10:22 | HMH.EDUTC ---
[facility] [place] Disposition Clinical Impression: Exposure to COVID-19 virus Sinusitis Qualifiers: Sinusitis location: unspecified location Chronicity: acute Recurrence: non-recurrent Qualified Code(s): J01.90 - Acute sinusitis, unspecified Disposition: Home, Self-Care Condition on Discharge: Good Instructions: DI for Sinusitis Additional Instructions: Drink plenty of fluids. Take tylenol or ibuprofen for pain or fever. Take the medications as directed. Follow up with your regular doctor. GO TO THE ER FOR ANY WORSENING SYMPTOMS Quarantine until you know the results of your covid-19 test. Notify your school or workplace of your results and follow their instructions regarding return to work/school. Prescriptions: Brompheniramine/Pseudoephed/Dm [Bromfed Dm Cough Syrup] 5 ml PO Q6HP PRN #240 ml PRN Reason: Cough Transmission Status: Received by [facility] guaiFENesin [Mucinex 600mg tablet] 1 - 2 tab PO BIDP PRN #30 tab PRN Reason: Congestion Transmission Status: Received by [facility] Azithromycin [Z-Thom 250mg Tab*] 250 mg PO UD DOSE PK #6 tab Transmission Status: Received by [facility] Referrals: Jesse Francis MD [Primary Care Provider] - Forms: Work/School Release Time of Disposition: 10:36 Medical Decision Making - Medical Records Medical records reviewed: No: I reviewed the patient's medical records. - Ravi Inquiry Pt receiving controlled substance: No Vital Signs: 03/21/22 10:12 03/21/22 10:39 Temperature 98.0 F 98.0 F Temperature Source Oral Pulse Rate 110 H Pulse Rate [Left Radial] 110 H Respiratory Rate 16 16 Blood Pressure 141/88 H Blood Pressure [Right Arm] 141/88 H Blood Pressure Mean [Right Arm] 105 02 Sat by Pulse Oximetry 98 Orders (Tests/Meds): ORDERS Category Date Time Status Covid-19 Nasal PCR ([facility]) Routine Lab 03/21/22 10:34 Received [facility] HPI - General Stated complaint: head congestion, sinus pressure Time Seen by Provider: 03/21/22 10:15 Description of Symptoms (Recalled from Triage Doc. by RN): patient comes in for headache, and pressur ein bother ears. patient states its been going on for a week and just continues to get worse HEENT Symptoms (Recalled from RN notes): Yes Resp Symptoms (Recalled from RN notes): No Skin Symptoms (Recalled from RN notes): No MS Symptoms (Recalled from RN notes): No Functional Status (Recalled from RN notes): wnl - History of Present Illness Provider Complaint: She states that for the past 7 days she has had sinus congestion, sinus pressure, and sinus drainage. She denies any fever or chills. - Related Data Previous Rx's Medication Instructions Recorded metformin 500 mg tablet,extended 500 mg PO DAILY #30 tab 03/23/20 release 24 hr escitalopram oxalate 20 mg tablet 20 mg PO DAILY #30 tab 03/24/20 hydroxyzine pamoate 25 mg capsule 25 mg PO TID PRN #60 cap 03/24/20 Azithromycin [Z-Thom 250mg Tab*] 250 mg PO UD DOSE PK #6 tab 03/21/22 Brompheniramine/Pseudoephed/Dm 5 ml PO Q6HP PRN #240 ml 03/21/22 [Bromfed Dm Cough Syrup] guaiFENesin [Mucinex 600mg tablet] 1 - 2 tab PO BIDP PRN #30 tab 03/21/22 Allergies Allergy/AdvReac Type Severity Reaction Status Date / Time No Known Allergies Allergy Verified 03/21/22 10:14 - Worker's Comp Is this a Worker's Comp case?: No [facility] History - Hepatitis A Screen Attestation statement:: This patient has been screened for Hepatitis A risk factors. I have reviewed the patient's past medical history: Yes Medical History: Reports:: Diabetes Mellitus Type 2 Denies:: Cancer, Diabetes Mellitus Type 1, MRSA Laterality Cases: Bilateral: Tonsillectomy Other Surgeries: Yes: , Hernia Repair Amputation: No - Social History Smoking Status: Never smoker Alcohol Intake: never Occupational Status: employed ROS Obtained: Yes All systems reviewed & no additional complaints - Constitutional Const
[2022-03-21 10:39] VITALS: BP 141/88; PULSE 110; RESP 16; TEMP 36.7
== END 2022-03-21 10:45 | disposition home or self-care (01) ==
PROVIDERS: Emergency Provider Nurse Practitioner Family; PCP Internal Medicine Adolescent Medicine
DX: J01.90 Acute sinusitis, unspecified (principal); Z20.822 Contact with and (suspected) exposure to COVID-19
CPT/HCPCS: 99212; C9803; G0463; U0003; U0005

== ENCOUNTER → 2022-03-29 13:07 | Outpatient (CLI) | payer OTHER, SELFPAY ==
[2022-03-31 08:53] LABS: Toxoplasma gondii Ab,IgG,Qn <3.0 IU/mL (0.0-7.1); Toxoplasma gondii Ab,IgM,Qn <3.0 AU/mL (0.0-7.9)
== END ==
PROVIDERS: PCP Internal Medicine Adolescent Medicine; Visit Provider Ophthalmology
DX: H35.052 Retinal neovascularization, unspecified, left eye (principal); H32 Chorioretinal disorders in diseases classified elsewhere
CPT/HCPCS: 36415; 86777

== ENCOUNTER → 2022-09-19 16:58 | Outpatient (CLI) | payer OTHER, SELFPAY ==
[2022-09-19 17:23] LABS: Basophils # 0.4 K/mm3 (0-0.2); Basophils % 4.3 % (0.1-2.0); Eosinophils # 0.1 K/mm3 (0.0-0.4); Eosinophils % 1.2 % (0.1-12.0); Hematocrit 43.2 % (37.0-47.0); Hemoglobin 14.5 g/dL (12.2-16.2); Lymphocytes # 2.4 K/mm3 (0.7-4.5); Lymphocytes % 28.6 % (10-50); Mean Corpuscular HGB Conc 33.6 g/dL (31.8-35.4); Mean Corpuscular Hemoglobin 28.2 pg (27.0-31.2); Mean Corpuscular Volume 83.9 fl (81-99); Mean Platelet Volume 9.3 fl (7.4-10.4); Monocytes # 0.3 K/mm3 (0.1-1.0); Neutrophils # 5.7 K/mm3 (1.8-7.8); Neutrophils % 67.3 % (37.0-80.0); Platelet Count 343 K/mm3 (142-424); Red Blood Count 5.15 M/mm3 (4.20-5.40); Red Cell Distribution Width 12.8 % (11.5-17.5); White Blood Count 8.5 K/mm3 (4.8-10.8)
[2022-09-19 18:08] LABS: Alanine Aminotransferase 20 U/L (12-78); Albumin Level 4.1 g/dl (3.5-5.0); Albumin/Globulin Ratio 1.6 (1.1-1.8); Alkaline Phosphatase 82 U/L (38-126); Anion Gap 11.9 mEq/L (5-15); Aspartate Amino Transferase 22 U/L (14-36); Bilirubin,Total 1.1 mg/dl (0.2-1.3); Blood Urea Nitrogen 20 mg/dl (7-17); Calcium 9.6 mg/dl (8.4-10.2); Carbon Dioxide 26 mmol/L (22.0-30.0); Chloride 102 mmol/L (98-107); Chol/HDL Ratio 4.6 (1-3.5); Cholesterol 198 mg/dl (140-200); Estimated Glomerular Filt Rate 98 ml/min (>60); GFR (African American) 118 ML/MIN (>60); Globulin 2.6 g/dL (1.3-3.2); Glucose 280 mg/dl (74-100); HDL Cholesterol 43 mg/dl (40-60); Potassium 3.9 mmoL/L (3.5-5.1); Sodium 136 mmol/L (136-145); Total Protein,Serum 6.7 g/dl (6.3-8.2); Triglycerides 171 mg/dl (30-150); VLDL Cholesterol 34 mg/dL (0-40)
[2022-09-19 18:19] LABS: Direct LDL Cholesterol 126.74 mg/dL (100-129)
[2022-09-19 18:25] LABS: 25-OH Vitamin D, Total 27.6 ng/mL (30-100); T4 (Thyroxine) 9.5 ug/dl (5.53-11.0)
[2022-09-19 18:39] LABS: Thyroid Stimulating Hormone 0.77 uIU/mL (0.465-4.68)
[2022-09-19 19:26] LABS: Hemoglobin A1C 13.7 % (4.0-6.0)
[2022-09-21 10:13] LABS: Insulin Level Total 8.5 uIU/mL (2.6-24.9)
[2022-09-21 12:29] LABS: C-Peptide 2.8 ng/mL (1.1-4.4)
== END ==
PROVIDERS: PCP Physician Assistant; Visit Provider Physician Assistant
DX: E11.9 Type 2 diabetes mellitus without complications (principal); E55.9 Vitamin D deficiency, unspecified; Z79.4 Long term (current) use of insulin
CPT/HCPCS: 36415; 80053; 80061; 82043; 82306; 83036; 83525; 84436; 84443; 84681; 85025

== ENCOUNTER → 2022-10-02 10:06 | Outpatient (CLI) | payer OTHER, SELFPAY ==
--- NOTE | 2022-10-02 10:06 | US_ITS ---
FINAL REPORT CLINICAL HISTORY: cystic nodules COMPARISON: August 23, 2020 FINDINGS: THYROID ULTRASOUND Sonographic images of the thyroid was obtained. The right lobe of the thyroid measures 5.0 x 1.7 x 1.7 cm. The left lobe of the thyroid measures 5.6 x 1.9 x 1.7 cm. The isthmus measures 5 mm. There is a 7 mm hypoechoic right lobe nodule which previously measured 6 mm. There are numerous other bilateral nodules suggestive of complex cysts with the largest on the left measuring 7 mm and was previously up to 5 mm. In the left thyroid isthmus there is a simple cyst measuring 10 mm which is unchanged. IMPRESSION: Minimal interval enlargement of hypoechoic nodule in the right lobe measuring 7 mm. Mild interval enlargement of dominant complex cystic lesion in the left lower lobe. Other lesions are stable. TI-RADS category 4, recommend 12 month follow-up. Reviewed, Interpreted and Dictated by Emma Marin MD Transcribed by Naye Ramey Authenticated and . [facility]
== END ==
PROVIDERS: PCP Physician Assistant; Visit Provider Physician Assistant
DX: E04.1 Nontoxic single thyroid nodule (principal)
CPT/HCPCS: 76536

== ENCOUNTER → 2022-10-10 07:42 | Outpatient (CLI) | payer OTHER, SELFPAY | PROVIDERS: PCP Physician Assistant; Visit Provider Physician Assistant | DX: E04.2 Nontoxic multinodular goiter (principal) ==

== ENCOUNTER → 2023-08-06 08:28 | Outpatient (CLI) | payer OTHER, SELFPAY ==
--- OUTSIDE RECORDS SUMMARY | 2023-08-07 08:33 | XMS_ITS | Patient Health Record ---
Author Name Unknown Organization [facility] Address [address] [place] [address] Care Team Providers Care Field Installer Name Role Phone Jesse Francis Primary Care Provider [phone] ALLERGIES No Known Allergies REASON FOR REFERRAL No Information MEDICATIONS Medication SIG (Take, Route, Frequency, Duration) Notes Start Date End Date Status Basaglar KwikPen 100 units/mL 40 units subcutaneously once a day at bedtime for 30 days 08/08/2020 Active Rosuvastatin Calcium 40 mg 1 tab(s) orally once a day for 30 day(s) 08/07/2021 Active Farxiga 10 mg 1 tab(s) orally once a day for 30 day(s) 08/07/2021 Active Rybelsus 3 mg 1 tab(s) orally once a day for 30 day(s) 08/22/2021 Active sertraline 50 mg 1 tab(s) orally once a day for 30 day(s) Active IMMUNIZATIONS Vaccine Route Administration Date Status Comme nts Influenza-Fluzone 3+years (NON-MEDICARE) IM Intramuscular 06/23/2018 Administered SOCIAL HISTORY Sex Assigned At : Social History Observation Description Sex Assigned At Unknown PROBLEMS Problem Type ICD Code Onset Dates Problem Status W/U Status Risk
== END ==
PROVIDERS: PCP Otolaryngology; Visit Provider Otolaryngology
DX: E11.40 Type 2 diabetes mellitus with diabetic neuropathy, unspecified (principal)

== ENCOUNTER → 2023-08-06 14:39 | Outpatient (CLI) | payer OTHER, SELFPAY ==
[2023-08-06 13:43] LABS: Basophils % 0.6 % (0.1-2.0); Eosinophils # 0.1 K/mm3 (0.0-0.4); Hemoglobin 16.3 g/dL (12.2-16.2); Lymphocytes # 1.9 K/mm3 (0.7-4.5); Lymphocytes % 27.6 % (10-50); Mean Corpuscular HGB Conc 35.4 g/dL (31.8-35.4); Mean Corpuscular Hemoglobin 30.2 pg (27.0-31.2); Mean Corpuscular Volume 85.3 fl (81-99); Mean Platelet Volume 10.3 fl (7.4-10.4); Monocytes # 0.3 K/mm3 (0.1-1.0); Monocytes % 4.4 % (1.7-9.3); Neutrophils # 4.6 K/mm3 (1.8-7.8); Neutrophils % 66.4 % (37.0-80.0); Platelet Count 288 K/mm3 (142-424); Red Blood Count 5.39 M/mm3 (4.20-5.40); Red Cell Distribution Width 12.5 % (11.5-17.5); White Blood Count 6.9 K/mm3 (4.8-10.8)
[2023-08-06 14:32] LABS: Hemoglobin A1C > 14.0 % (4.0-6.0)
[2023-08-06 14:33] LABS: Alanine Aminotransferase 32 U/L (12-78); Albumin Level 4.6 g/dl (3.5-5.0); Albumin/Globulin Ratio 1.5 (1.1-1.8); Alkaline Phosphatase 88 U/L (38-126); Anion Gap 15.8 mEq/L (5-15); Aspartate Amino Transferase 29 U/L (14-36); Bilirubin,Total 1.2 mg/dl (0.2-1.3); Blood Urea Nitrogen 16 mg/dl (7-17); Calcium 9.7 mg/dl (8.4-10.2); Carbon Dioxide 26 mmol/L (22.0-30.0); Chloride 100 mmol/L (98-107); Chol/HDL Ratio 5.3 (1-3.5); Cholesterol 275 mg/dl (140-200); Estimated Glomerular Filt Rate 117 ml/min (>60); GFR (African American) 141 ML/MIN (>60); Glucose 377 mg/dl (74-100); HDL Cholesterol 52 mg/dl (40-60); Potassium 4.8 mmoL/L (3.5-5.1); Sodium 137 mmol/L (136-145); Total Protein,Serum 7.6 g/dl (6.3-8.2); Triglycerides 136 mg/dl (30-150); VLDL Cholesterol 27 mg/dL (0-40)
[2023-08-06 14:50] LABS: 25-OH Vitamin D, Total 27.7 ng/mL (30-100)
[2023-08-06 15:03] LABS: Thyroid Stimulating Hormone 0.79 uIU/mL (0.465-4.68)
[2023-08-06 19:24] LABS: Creatinine,Urine Random 56 mg/dL (Not Estab.)
== END ==
PROVIDERS: PCP Physician Assistant; Visit Provider Physician Assistant
DX: E11.40 Type 2 diabetes mellitus with diabetic neuropathy, unspecified (principal); E55.9 Vitamin D deficiency, unspecified; Z79.4 Long term (current) use of insulin; Z79.899 Other long term (current) drug therapy
CPT/HCPCS: 80053; 80061; 82043; 82306; 82570; 83036; 84443; 85025

== ENCOUNTER 2023-10-31 22:18 | Outpatient (CLI) | payer OTHER, SELFPAY ==
[2023-10-31 18:56] LABS: Basophils # 0.1 K/mm3 (0-0.2); Basophils % 0.9 % (0.1-2.0); Eosinophils # 0.1 K/mm3 (0.0-0.4); Eosinophils % 0.7 % (0.1-12.0); Hematocrit 44.6 % (37.0-47.0); Hemoglobin 15.2 g/dL (12.2-16.2); Lymphocytes # 2.3 K/mm3 (0.7-4.5); Lymphocytes % 33.2 % (10-50); Mean Corpuscular Volume 85.2 fl (81-99); Mean Platelet Volume 10.1 fl (7.4-10.4); Monocytes # 0.3 K/mm3 (0.1-1.0); Monocytes % 4.9 % (1.7-9.3); Neutrophils # 4.2 K/mm3 (1.8-7.8); Neutrophils % 60.3 % (37.0-80.0); Platelet Count 383 K/mm3 (142-424); Red Blood Count 5.23 M/mm3 (4.20-5.40); Red Cell Distribution Width 12.7 % (11.5-17.5); White Blood Count 6.9 K/mm3 (4.8-10.8)
[2023-10-31 19:03] LABS: Alanine Aminotransferase 26 U/L (12-78); Albumin Level 4.2 g/dl (3.5-5.0); Albumin/Globulin Ratio 1.4 (1.1-1.8); Alkaline Phosphatase 63 U/L (38-126); Anion Gap 9.1 mEq/L (5-15); Aspartate Amino Transferase 30 U/L (14-36); Bilirubin,Total 1.2 mg/dl (0.2-1.3); Blood Urea Nitrogen 14 mg/dl (7-17); Calcium 9.5 mg/dl (8.4-10.2); Carbon Dioxide 27 mmol/L (22.0-30.0); Chloride 108 mmol/L (98-107); Chol/HDL Ratio 3.2 (1-3.5); Cholesterol 139 mg/dl (140-200); Estimated Glomerular Filt Rate 73 ml/min (>60); GFR (African American) 88 ML/MIN (>60); Glucose 88 mg/dl (74-100); HDL Cholesterol 43 mg/dl (40-60); Potassium 4.1 mmoL/L (3.5-5.1); Sodium 140 mmol/L (136-145); Total Protein,Serum 7.2 g/dl (6.3-8.2); Triglycerides 69 mg/dl (30-150); VLDL Cholesterol 14 mg/dL (0-40)
[2023-10-31 19:14] LABS: Direct LDL Cholesterol 75.71 mg/dL (100-129)
[2023-10-31 19:22] LABS: 25-OH Vitamin D, Total 65.1 ng/mL (30-100)
[2023-10-31 19:37] LABS: Thyroid Stimulating Hormone 0.46 uIU/mL (0.465-4.68)
[2023-10-31 19:49] LABS: Hemoglobin A1C 9.4 % (4.0-6.0)
== END 2023-10-31 23:59 ==
LOC: LAB.DROPOF 22:19
PROVIDERS: PCP Physician Assistant; Visit Provider Physician Assistant
DX: E11.40 Type 2 diabetes mellitus with diabetic neuropathy, unspecified (principal); Z79.4 Long term (current) use of insulin; Z79.899 Other long term (current) drug therapy
CPT/HCPCS: 80053; 80061; 82306; 83036; 84443; 85025

== ENCOUNTER 2023-11-12 15:29 | Outpatient (CLI) | payer OTHER, SELFPAY ==
--- NOTE | 2023-11-12 15:37 | US_ITS ---
FINAL REPORT CLINICAL HISTORY: nodules COMPARISON: 10/02/2022 FINDINGS: THYROID ULTRASOUND: The right lobe of the thyroid measures 5 x 1.6 x 1.5 cm in size. There is a nodule in the medial right lobe of the thyroid, measuring 7 x 7 x 5 mm in size, mixed cystic and solid, was previously 7 x 6 x 5 mm in size, stable. This is a TI-RADS category 3 nodule. The left lobe of the thyroid gland contains multiple nodules. The left lobe measures 5.3 x 1.5 x 1.6 cm in size. In the lower pole there is a 13 x 6 x 10 mm nodule, which was 15 x 9 x 11 cm on the prior exam. This mass is cystic and solid, isoechoic, a TI-RADS category 2 nodule, decreased in size since the prior exam. There is a spongiform nodule in the left lobe of the thyroid, measuring 8 x 7 x 6 mm in size, was 7 x 6 x 6 mm in size, essentially stable. This is a TI-RADS category 1 nodule. The isthmus measures 5.5 mm in thickness, with a cystic TI-RADS category 1 on the left side of the isthmus, stable. IMPRESSION: Multiple nodules in the thyroid glands bilaterally, mostly stable or slightly smaller than noted on the prior exam. Would recommend 12-month follow-up thyroid ultrasound. Reviewed, Interpreted and Dictated by Mane Wolfe III, MD Transcribed by Jennifer Blue Authenticated and [facility]
== END 2023-11-12 23:59 ==
LOC: RAD 15:30
PROVIDERS: PCP Physician Assistant; Visit Provider Otolaryngology
DX: E04.1 Nontoxic single thyroid nodule (principal)
CPT/HCPCS: 76536

== ENCOUNTER 2024-02-20 12:08 | Outpatient (CLI) | payer OTHER, SELFPAY ==
[2024-02-20 18:10] LABS: Chloride 102 mmol/L (98-107); Potassium 4.1 mmoL/L (3.5-5.1); Sodium 136 mmol/L (136-145)
[2024-02-20 18:12] LABS: Basophils # 0.1 K/mm3 (0-0.2); Basophils % 0.7 % (0.1-2.0); Eosinophils # 0.1 K/mm3 (0.0-0.4); Eosinophils % 1.6 % (0.1-12.0); Hematocrit 42.5 % (37.0-47.0); Hemoglobin 14.2 g/dL (12.2-16.2); Lymphocytes # 2.3 K/mm3 (0.7-4.5); Lymphocytes % 31.2 % (10-50); Mean Corpuscular HGB Conc 33.3 g/dL (31.8-35.4); Mean Corpuscular Volume 87.2 fl (81-99); Mean Platelet Volume 9.9 fl (7.4-10.4); Monocytes # 0.2 K/mm3 (0.1-1.0); Monocytes % 3.3 % (1.7-9.3); Neutrophils # 4.6 K/mm3 (1.8-7.8); Neutrophils % 63.3 % (37.0-80.0); Platelet Count 299 K/mm3 (142-424); Red Blood Count 4.88 M/mm3 (4.20-5.40); White Blood Count 7.2 K/mm3 (4.8-10.8)
[2024-02-20 18:13] LABS: Alanine Aminotransferase 59 U/L (12-78); Albumin Level 4.1 g/dl (3.5-5.0); Albumin/Globulin Ratio 1.4 (1.1-1.8); Alkaline Phosphatase 75 U/L (38-126); Anion Gap 9.1 mEq/L (5-15); Aspartate Amino Transferase 38 U/L (14-36); Bilirubin,Total 0.9 mg/dl (0.2-1.3); Blood Urea Nitrogen 18 mg/dl (7-17); Calcium 9.6 mg/dl (8.4-10.2); Carbon Dioxide 29 mmol/L (22.0-30.0); Cholesterol 153 mg/dl (140-200); Estimated Glomerular Filt Rate 97 ml/min (>60); GFR (African American) 117 ML/MIN (>60); Glucose 291 mg/dl (74-100); Total Protein,Serum 7.1 g/dl (6.3-8.2); Triglycerides 250 mg/dl (30-150); VLDL Cholesterol 50 mg/dL (0-40)
[2024-02-20 18:14] LABS: Chol/HDL Ratio 2.7 (1-3.5); HDL Cholesterol 57 mg/dl (40-60)
[2024-02-20 18:20] LABS: Hemoglobin A1C 7.3 % (4.0-6.0)
[2024-02-20 18:25] LABS: Direct LDL Cholesterol 66.61 mg/dL (100-129)
[2024-02-20 18:31] LABS: 25-OH Vitamin D, Total 55.5 ng/mL (30-100)
[2024-02-20 18:44] LABS: Thyroid Stimulating Hormone 0.92 uIU/mL (0.465-4.68)
[2024-02-20 18:49] LABS: Ferritin 21.6 ng/ml (6.24-137)
== END 2024-02-20 23:59 | disposition home or self-care (01) ==
LOC: LAB.DROPOF 02-21 12:08
PROVIDERS: PCP Physician Assistant; Visit Provider Physician Assistant
DX: E11.9 Type 2 diabetes mellitus without complications (principal); E01.0 Iodine-deficiency related diffuse (endemic) goiter; Z79.4 Long term (current) use of insulin; R74.01 Elevation of levels of liver transaminase levels
CPT/HCPCS: 80053; 80061; 82306; 82728; 83036; 84443; 85025

== ENCOUNTER 2024-07-21 07:59 | Outpatient (CLI) | payer OTHER, SELFPAY | END 2024-07-21 23:59 | disposition home or self-care (01) | LOC: RT 08:00 | PROVIDERS: PCP Physician Assistant; Visit Provider Physician Assistant | DX: E11.40 Type 2 diabetes mellitus with diabetic neuropathy, unspecified (principal) | CPT/HCPCS: 93923 ==

== ENCOUNTER 2024-11-16 07:55 | Outpatient (CLI) | payer OTHER, SELFPAY ==
--- NOTE | 2024-11-16 07:56 | US_ITS ---
FINAL REPORT TECHNIQUE: Sonographic images of the thyroid gland were obtained in the longitudinal and transverse planes. CLINICAL HISTORY: 1 year follow up COMPARISON: 11/12/2023 FINDINGS: The right lobe measures 5 x 1.7 x 1.9 cm. There is a 7 mm cystic and solid mass in the right thyroid, that is stable when compared to the prior exam. There are multiple subcentimeter colloid cysts present in the right lobe of the thyroid. The left lobe measures 4.8 x 1.7 x 1.9 cm. There is no significant change in an 8 mm mixed cystic and solid nodule in the upper pole, a TI-RADS category 3 nodule. There is a lower pole mixed cystic and solid mass measuring 13 mm in greatest diameter, also a TI-RADS category 3 nodule. In this particular nodule, the cystic component has decreased since the prior exam. No new nodules are identified in the left lobe. The isthmus measures 5.5 mm. This is normal. IMPRESSION: Bilateral TI-RADS category 3 nodules are present, recommend continued follow-up. Reviewed, Interpreted and Dictated by Reyna Mckenzie MD Transcribed by Jennifer Blue Authenticated and [facility]
== END 2024-11-16 23:59 | disposition home or self-care (01) ==
LOC: RAD 07:56
PROVIDERS: PCP Physician Assistant; Visit Provider Nurse Practitioner
DX: E04.1 Nontoxic single thyroid nodule (principal)
CPT/HCPCS: 76536

== ENCOUNTER 2025-06-09 22:13 | Emergency (ER) | payer OTHER, SELFPAY ==
--- OUTSIDE RECORDS SUMMARY | 2025-01-02 17:30 | XMS_ITS ---
Author Organization [facility] Address [address] [place] [address] Care Team Providers Care Substation Manager Name Role Phone Jesse Francis Primary Care Provider Migration, Provider Unavailable Unavailable [facility] Conversion Encounter Medications Medication SIG (Take, Route, Frequency, Duration) Notes Start Date End Date Status Sertraline HCl 50 MG 1 tab(s) orally onc e a day; Duration: 30 day(s) Active Basaglar KwikPen 100 UNIT/ML 40 units subcutaneously once a day at bedtime; Duration: 30 days 08/08/2020 Active Rosuvastatin Calcium 40 MG 1 tab(s) orally once a day; Duration: 30 day(s) 08/07/2021 Active Farxiga 10 MG 1 tab(s) orally once a day; Duration: 30 day(s) 08/07/2021 Active Rybelsus 3 MG 1 tab(s) orally once a day; Duration: 30 day(s) 08/22/2021 Active Encounters Encounter Location Date Provider Diagnosis [facility] [address] [place] [address] 01/02/2025 Provider Migration Type 2 diabetes mellitus with hyperglycemia E11.65 Assessments Encounter Date Diagnosis (ICD Code) Assessment Notes Treatment Notes Treatment Clinical Notes Section Notes 01/02/2025 Type 2 diabetes mellitus with hyperglycemia (ICD-10 - E11.65) Plan Of Treatment Medication Medication Name Sig Start Date Stop Date Notes Sertraline HCl 50 MG 1 tab(s) orally onc e a day; Duration: 30 day(s) Rybelsus 3 MG 1 tab(s) orally once a day; Duration: 30 day(s) 08/22/2021 Progress Notes * Colton SOLISB:1990 (34 yo F)Acc No.[id number]:01/02/2025 Patient: Nya MIDDLETON Provider: Tori baker Migration :1990 A ge:34 Y S ex:Female Date:01/02/2025 Address:[address] [place] [address] [place], [id number] Pcp:Jesse Francis Subjective: * Chief Complaints: * 1 . [facility] To [facility] Conversion Encounter. * Medical History: * Medications: T aking Farxiga 10 MG Tablet 1 tab(s) orally once a day , Taking Rosuvastatin Calcium 40 MG Tablet 1 tab(s) orally once a day , Taking Basaglar KwikPen 100 UNIT/ML Solution Pen-injector 40 units subcutaneously once a day at bedtime Objective: * Vitals: Assessment: * Assessment: 1. T ype 2 diabetes mellitus with hyperglycemia - E11.65 (Primary) Plan: * Treatment: 2. O thers Start Sertraline HCl Tablet, 50 MG, 1 tab(s), orally, once a day, 30 day(s), 30, Refills 1. ? * * Electronic signature of Prov ider Migration on 06/09/2025 at 10:39 PM EDT Sign off status: Pending * Provider: Tori Ferreira Date: 0 01/02/2025 Generated for Federico moore/Rk/Sophiesmlorna on: 0 06/09/2025 10:39 PM EDT
[2025-06-09 22:30] VITALS: BP 134/92; PULSE 90; RESP 16; TEMP 37; O2SAT 100; BMI 23.0
--- OUTSIDE RECORDS SUMMARY | 2025-06-09 22:39 | XMS_ITS | Patient Health Record ---
Author Organization [facility] Address [address] [place] [address] Care Team Providers Care Forest Fire Fighter Name Role Phone Jesse Francis Primary Care Provider Migration, Provider Unavailable Unavailable Allergies No Known Allergies Reason For Referral No Information Medications Medication SIG (Take, Route, Frequency, Duration) [...] a day; Duration: 30 day(s) 08/22/2021 Active Immunizations Vaccine Route Administration Date Status Comme nts Influenza-Fluzone 3+years (NON-MEDICARE) IM Intramuscular 06/23/2018 Administered Problems Problem Type SNOMED Code ICD Code Onset Dates Problem Status W/U Status Risk Notes Problem Hyperglycemia due to type 2 diabetes mellitus (296260227303504) Type 2 diabetes mellitus with hyperglycemia (E11.65) Active confirmed Problem Bacteremia (4075755) Bacteremia (R78.81) Active confirmed Problem Thyroid nodule (361363481) Thyroid nodule (E04.1) Active confirmed Problem Long-term current use of insulin (770984472) terminal carman current use of insulin (Z79.4) Active confirmed Problem Microalbuminuria (632693771) Microalbuminuria (R80.9) Active confirmed Problem Acute pyelonephritis (19953639) Acute pyelonephritis (N10) Active confirmed Problem Malodorous urine (934344428) Malodorous urine (R82.90) Active confirmed Problem Generalized anxiety disorder (39274480) RICHIE (generalized anxiety disorder) (F41.1) Active confirmed Problem Acute urinary tract infection (966917701) Acute UTI (N39.0) Active confirmed Problem Thyromegaly (8168010) Thyromegaly (E01.0) Active confirmed Problem Bacteremia (7366126) Bacteremia due to Klebsiella pneumoniae (R78.81) Active confirmed Problem Recurrent major depression in remission (58403070) Depression, major, recurrent, in partial remission (F33.41) Active confirmed Encounters Encounter Location Date Provider Diagnosis [facility] [address] [facility] [address] [place] [address] 01/02/2025 Provider Migration Type 2 diabetes mellitus with hyperglycemia E11.65 Assessments Encounter Date Diagnosis (ICD Code) Assessment Notes Treatment Notes Treatment Clinical Notes Section Notes 01/02/2025 Type 2 diabetes mellitus with hyperglycemia (ICD-10 - E11.65) Plan Of Treatment Pending Test Test Name Order Date Urinalysis 11/13/2018 Rapid Strep 09/25/2017 Microalbumin (In-House) 02/09/2016 Dietary Consult 06/23/2018 C-URINE CULTURE 11/13/2018 C-URINE CULTURE 07/19/2021 Rapid Flu, A 09/25/2017 Rapid Flu, B 09/25/2017 M-Complete Blood Count Auto Diff 018 M-Comprehensive Metabolic Panel 09/16/20 18 M-Comprehensive Metabolic Panel 06/12/20 18 M-Hemoglobin A1C 09/16/2018 M-Free T4 (Free Thyroxine) 09/16/2018 M-Free T4 (Free Thyroxine) 06/12/2018 M-Thyroid Stimulating Hormone 06/12/2018 M-Thyroid Stimulating Hormone 09/16/2018 O-Vwsd-Lsojaoaubtnmz Antibody 06/23/2018 M-Blood Culture 06/23/2018 Future Test Test Name Order Date M-Comprehensive Metabolic Panel 12/26/19 19 M-Hemoglobin A1C 12/25/2018 Insurance Providers Payer Name Payer Address Payer Phone Subscriber Number Group Number Insured Name Patient Relationship to Insured Coverage Start Date Coverage End Date [facility] [facility] [address] [address] [place] [address] [id number] Valeria [place] Self - patient is the insured Medical (General) History Medical History History ICD Code Diabetes on insulin Anxiety Thyromegaly with nodules Surgical History Surgery Date(Month/Year) 2013 periumbilical hernia repair 06/02/2015 Hospitalization History Reason Date(Month/Year) child hyperglycemia, rapid heart rate, blood i nfection 05/2018
--- NOTE | 2025-06-09 22:53 | HMH.EDGENADL ---
Discharge Plan Disposition Patient Disposition: Home, Self-Care Condition: Good Prescriptions Prescriptions: New ondansetron 4 mg tablet,disintegrating 4 mg PO DAILY Qty: 30 0RF dicyclomine 20 mg tablet 20 mg PO BID Qty: 20 0RF No Action (DME) lancets [BD Ultra Fine Lancets] 33 gauge misc See Rx Instructions .Route Qty: 100 12RF Rx Instructions: As directed cholecalciferol (vitamin D3) 50 mcg (2,000 unit) tablet PO (DME) pen needle, diabetic [BD Ultra-Fine Mini Pen Needle] 31 gauge x 3/16 needle See Rx Instructions .ROUTE .MEDSUPPLY Qty: 100 5RF Rx Instructions: As directed (DME) blood-glucose meter [Advanced Glucose Meter] Misc See Rx Instructions .ROUTE .MEDSUPPLY Qty: 1 0RF Rx Instructions: FS TID (DME) Advanced Gluc Meter Test Strip Strip See Rx Instructions .Route Qty: 200 3RF Rx Instructions: Check glucose TID (DME) pen needle, diabetic [Comfort EZ Pen Monroe] 31 gauge x 1/4 needle See Rx Instructions .Route Qty: 100 2RF Rx Instructions: As directed aspirin 81 mg tablet,delayed release (DR/EC) PO amoxicillin 500 mg capsule 500 mg PO TID 10 Days Qty: 30 0RF atorvastatin 10 mg tablet 10 mg PO DAILY Qty: 90 3RF lisinopril 2.5 mg tablet 2.5 mg PO DAILY Qty: 90 3RF cholecalciferol (vitamin D3) 50 mcg (2,000 unit) capsule 50 mcg PO DAILY Qty: 90 3RF ergocalciferol (vitamin D2) 1,250 mcg (50,000 unit) capsule 1,250 mcg PO WEEKLY Qty: 14 3RF (DME) lancets [Easy Touch Lancets] 30 gauge misc See Rx Instructions .Route Qty: 200 0RF Rx Instructions: Check glucose TID insulin glargine 100 unit/mL (3 mL) insulin pen 30 unit SQ HS Qty: 15 2RF Auvelity 45-105 mg tablet, IR and ER, biphasic See Rx Instructions .ROUTE .COMPLEX Qty: 60 0RF Dose Instruction: TAKE ONE TABLET BY MOUTH 2 TIMES A DAY Rx Instructions: TAKE ONE TABLET BY MOUTH 2 TIMES A DAY pregabalin 75 mg capsule 75 mg PO TID 30 Days Qty: 90 0RF Jardiance 25 mg tablet See Rx Instructions .ROUTE .COMPLEX Qty: 30 0RF Dose Instruction: TAKE ONE TABLET BY MOUTH ONCE A DAY Rx Instructions: TAKE ONE TABLET BY MOUTH ONCE A DAY Referrals Follow up/Referrals: Ceci Downey PA [Primary Care Provider, Medical] - See instructions Activity Restrictions/Add. Instructions Additional Instructions/Restrictions: You can take Zofran and Bentyl as needed for symptom control. Stay well-hydrated. Return to the emergency department if you are unable to tolerate any oral intake. Clinical Impressions Clinical Impression: Vomiting Instructions Patient Instructions: DI for Acute Abdominal Pain Print Language Print Language: Armenian Discharge ED Provider: Mallory Mendenhall Adult HPI General Chief complaint: Abdominal Pain Stated complaint: sharp lower abdominal pain, lightheaded Time Seen by Provider: 06/09/25 22:44 Mode of Arrival: Ambulatory Source of Information: Patient Description of Symptoms (Recalled from ER Triage Doc. by RN): patient presents to the ED for lower abdominal pain that started this evening at home. Braeden was just hanging out when all the sudden she started experiencing 4/10 abdominal pain. Niconet denies burning when she pees. Patient also endorses vomiting prior to arrival and per famioly report the patient was extremly red . History of Present Illness HPI narrative: Is an otherwise healthy 34-year-old female who is a diabetic presented to the emergency department with nausea vomiting and abdominal pain after eating dinner tonight. Patient states that she ate dinner then started having some abdominal cramping had 1 episode of vomiting no diarrhea. Patient denies any fevers. States that she felt hot. Was not having any shortness of breath chest pain or other associated symptoms. Patient denies any urinary symptoms. Patient denies any alcohol use or other drug use. Related Data Home Medications ?Medication ?Instructions ?Recorded ?Confirmed cholecalciferol (vitamin D3) 50 PO 11/28/23 02/27/25 mcg (2,000 unit) tablet aspirin 81 mg tablet,delayed mg PO 11/23/24 02/27/25 release Previous Rx's ?Medication ?Instructions ?Recorded lancets 33 gauge (BD Ultra Fine #100 ea 09/19/22 Lancets) atorvastatin 10 mg tablet 10 mg PO DAILY #90 tabs 08/12/23 cholecalciferol (vitamin D3) 50 50 mcg PO DAILY #90 caps 08/12/23 mcg (2,000 unit) capsule ergocalciferol (vitamin D2) 1,250 1,250 mcg PO WEEKLY #14 caps 08/12/23 mcg (50,000 unit) capsule lancets 30 gauge (Easy Touch #200 ea 08/12/23 Lancets) lisinopril 2.5 mg tablet 2.5 mg PO DAILY #90 tabs 08/12/23 blood sugar diagnostic (Advanced #200 ea 09/03/23 Glucose Meter Test Strips) blood-glucose meter (Advanced #1 ea 09/03/23 Glucose Meter) pen needle, diabetic 31 gauge x #100 ea 09/03/2310/03 (Comfort EZ Pen Monroe) insulin glargine 100 unit/mL (3 30 unit (0.3 mL) SQ HS #15 mL 01/30/24 mL) subcutaneous pen pen needle, diabetic 31 gauge x #100 ea 02/20/2412/13 (BD Ultra-Fine Mini Pen Needle) dextromethorphan IR 45 See Rx Instructions .Route 07/02/24 mg-bupropion ER 105 mg biphasic .COMPLEX #60 tabs tablet (Auvelity) empagliflozin 25 mg tablet See Rx Instructions .Route 07/02/24 (Jardiance) .COMPLEX #30 tabs pregabalin 75 mg capsule 75 mg PO TID 30 days #90 caps 07/02/24 amoxicillin 500 mg capsule 500 mg PO TID 10 days #30 caps 02/27/25 dicyclomine 20 mg tablet 20 mg PO BID #20 tabs 06/09/25 ondansetron 4 mg disintegrating 4 mg PO DAILY #30 tabs 06/09/25 tablet Allergies Allergy/AdvReac Type Severity Reaction Status Date / Time No Known Allergies Allergy Verified 02/27/25 14:54 [facility] Disclaimer: The information contained in this section may have been updated after the patient was seen, as this information can be updated by other users. Medical History (Updated 06/09/25 @ 23:37 by Mallory Mendenhall DO) Dental infection Dysphagia Abnormal uterine bleeding Vaginal discharge Thyromegaly Type 1 diabetes mellitus Elevated liver enzymes Pyelonephritis Surgical History No history of previous surgery Social History Smoking Status: Never smoker alcohol intake: never current occupational status: employed Travel in the last 8 weeks?: None Have you lived/traveled outside [place] in past 30 days?: No Contact w/someone who lives/traveled outside US past 30 days?: No Exposure to someone with infectious disease in past 14 days?: No Do you have a fever (greater than 100.4 F or 38 C)?: No Have you tested positive for COVID-19?: No Exposed to someone with COVID-19 in past 14 days?: No Do you have a sore throat?: No Do you have a cough?: No Do you have any weakness?: No Do you have any diarrhea?: No Are you experiencing any unusual bleeding?: No Do you have any muscle aches/pain?: No Do you have any abdominal pain?: Yes Are you experiencing loss of taste or smell?: No Other Medical History Have you received the Flu Vaccine for this season: No Have you received the Pneumonia Vaccine: No ROS Obtained: Yes All systems reviewed & no additional complaints except as documented and Yes Systems reviewed as appropriate & no additional complaints except as documented Physical Exam General General appearance: alert and in no apparent distress Head Head exam: atraumatic, normocephalic and normal inspection Eye Eye exam: Present normal appearance, PERRL and EOMI; Absent scleral icterus ENT ENT exam: Present normal exam and normal external ear exam Neck Neck exam: Present normal inspection and full ROM Chest Chest inspection: Present normal inspection and symmetric chest wall rise Respiratory Respiratory exam: Present normal lung sounds bilaterally; Absent respiratory distress or wheezes Cardiovascular Cardiovascular exam: Present regular rate, normal rhythm and normal heart sounds Abdominal Exam Abdominal exam: Present soft and distention; Absent tenderness, guarding or rebound Extremities Exam Extremities exam: Present normal inspection and full ROM Back Exam Back exam: Present normal inspection and full ROM Neurological Exam Neurological exam: Present alert and oriented X3 Psychiatric Psychiatric exam: Present normal affect and normal mood Skin Skin exam: Present warm and dry Medical Decision Making Medical Records Medical records reviewed: Yes I reviewed the patient's medical records. Screening: Per USPSTF and CDC recommendations, given the prevalence of disease in our region, it is our hospital?s policy to screen for HIV and viral Hepatitis for all patients aged 18 and over and those with ongoing risk factors. Ravi Inquiry Pt receiving controlled substance: No Vital Signs: 06/09/25 22:30 06/09/25 23:18 06/09/25 23:20 Temperature 98.6 F Temperature Source Temporal Artery Scan Pulse Rate 94 H Pulse Rate [Right Radial] 90 Respiratory Rate 16 Blood Pressure 121/80 Blood Pressure [Right Arm] 134/92 H Blood Pressure Mean 89 Blood Pressure Mean [Right Arm] 106 Blood Pressure Source [Right Arm] Automatic Cuff Blood Pressure Position [Right Arm] Sitting 02 Sat by Pulse Oximetry 100 100 Oxygen Delivery Method Room Air Lab Data Lab results reviewed: Yes I reviewed the patient's lab results. Lab Results 06/09/25 22:48: WBC 6.2, RBC 4.94, Hgb 13.8, Hct 41.5, MCV 84.0, MCH 27.9, MCHC 33.3, RDW 12.2, Plt Count 332, MPV 11.1 H, Neut % (Auto) 54.5, Lymph % (Auto) 41.1, Bailey % (Auto) 3.1, Eos % (Auto) 0.6, Baso % (Auto) 0.5, Neut # (Auto) 3.4, Lymph # (Auto) 2.6, Bailey # (Auto) 0.2, Eos # (Auto) 0.0, Baso # (Auto) 0.0, Sodium 140, Potassium 3.9, Chloride 105, Carbon Dioxide 29, Anion Gap 9.9, BUN 16, Creatinine 0.80, Estimated Creat Clear 93, Estimated GFR 83, Est GFR ( Amer) 100, Glucose 281 H, Calcium 9.9, Total Bilirubin 1.1, AST 38 H, ALT 24, Alkaline Phosphatase 59, Total Protein 7.6, Albumin 4.5, Globulin 3.1, Albumin/Globulin Ratio 1.5, Lipase 243, Serum HCG, Qual Negative 06/09/25 22:56: Urine Color Yellow, Urine Appearance Sl cloudy, Urine pH 5.5, Ur Specific Granger <= 1.005, Urine Protein Negative, Urine Glucose (UA) 3+, Urine Ketones Negative, Urine Blood Negative, Urine Nitrate Negative, Urine Bilirubin Negative, Urine Urobilinogen 1.0, Ur Leukocyte Esterase Negative, Urine RBC Occasional, Urine WBC Occasional, Ur Squamous Epith Cells 10-20, Urine Bacteria 1+ 06/09/25 22:48 06/09/25 22:48 Orders (Tests/Meds): ED MEDICATIONS Discontinued Medications Generic Name Dose Route Start Last Admin Trade Name Freq PRN Reason Stop Dose Admin Dicyclomine HCl 20 mg 06/09/25 22:48 06/09/25 22:54 Dicyclomine 10mg Capsule PO 06/09/25 22:49 20 mg ONCE ONE Administration Ketorolac Tromethamine 30 mg 06/09/25 22:48 06/09/25 22:55 Ketorolac 30mg/Ml Vial IV 06/09/25 22:49 30 mg ONCE ONE Administration Ondansetron HCl 4 mg 06/09/25 22:48 06/09/25 22:55 Ondansetron 4mg/2ml Vial IV 06/09/25 22:49 4 mg ONCE ONE Administration ORDERS Category Date Time Status Complete Blood Count Auto Diff Stat Lab 06/09/25 22:48 Completed Comprehensive Metabolic Panel Stat Lab 06/09/25 22:48 Completed HCG Qualitative, Serum Stat Lab 06/09/25 22:48 Completed Lipase Stat Lab 06/09/25 22:48 Completed Troponin I Q3H Lab 06/10/25 01:45 Ordered Troponin I Q3H Lab 06/10/25 04:45 Ordered Urinalysis and Microscopic Stat Lab 06/09/25 22:56 Completed Urine Culture Stat Micro 06/09/25 22:56 Received Medical Decision Narrative: Patient is an otherwise healthy 34-year-old female who presented to the emergency department with abdominal pain vomiting after eating dinner tonight. On arrival, patient was hemodynamically stable with unremarkable vital signs. Differential includes but not limited to: Gastroenteritis, gastritis, food poisoning, pancreatitis, dehydration, amongst others. On exam, patient had no focal right lower quadrant left lower quadrant tenderness therefore low concern for appendicitis or ovarian pathology at this time. Patient had no right upper quadrant tenderness therefore low concern for gallbladder pathology. Patient's labs were reviewed and interpreted by myself: CBC showed no leukocytosis, hemoglobin was stable. CMP was unremarkable. Glucose was 281. Lipase mildly elevated at 243. test negative. UA with no evidence of infection. Patient was given Bentyl, Zofran in the emergency department with plan for reassessment. On reassessment, patient was able to tolerate oral intake. Patient was sent with Bentyl and Zofran to her pharmacy. Patient was advised to maintain a bland diet over the next couple days. Patient was otherwise discharged home in stable condition. Critical Care Critical Care Time Critical Care Time: No
[2025-06-09] MEDS: KETOROLAC 30MG/ML VIAL 30 MG IV (22:55)
[2025-06-09] MEDS: ONDANSETRON 4MG/2ML VIAL 4 MG IV (22:55)
[2025-06-09 23:01] LABS: Hematocrit 41.5 % (37.0-47.0); Hemoglobin 13.8 g/dL (12.2-16.2); Immature Granulocytes % 0.2 %; Mean Corpuscular HGB Conc 33.3 g/dL (31.8-35.4); Mean Corpuscular Hemoglobin 27.9 pg (27.0-31.2); Mean Corpuscular Volume 84.0 fl (81-99); Nucleated Red Blood Cells % 0 %; Platelet Count 332 K/mm3 (142-424); Red Blood Count 4.94 M/mm3 (4.20-5.40); Red Cell Distribution Width-SD 37.0 fL; White Blood Count 6.2 K/mm3 (4.8-10.8)
[2025-06-09 23:04] LABS: Microscopic, Urine URINE MICROSCOPIC (MICROSCOPIC)
[2025-06-09 23:06] LABS: Albumin Level 4.5 g/dl (3.5-5.0); Chloride 105 mmol/L (98-107)
[2025-06-09 23:06] LABS: Bilirubin,Urine Negative (Negative); Color,Urine YELLOW (Yellow); Glucose,Urine (UA) 3+ (Negative); Ketones,Urine Negative (Negative); Leukocyte Esterase,Urine Negative (Negative); PH,Urine 5.5 (5.0-8.5); Protein,Urine Negative (Negative); Specific Gravity, Urine <= 1.005 (1.005-1.030); Urobilinogen,Urine 1.0 EU/dl (0.2)
[2025-06-09 23:07] LABS: HCG Qualitative, Serum Negative (Negative); Potassium 3.9 mmoL/L (3.5-5.1); Sodium 140 mmol/L (136-145)
[2025-06-09 23:09] LABS: Blood Urea Nitrogen 16 mg/dl (7-17); Creatinine Clearance Estimated 93 mL/min (50-200); Creatinine,Serum 0.80 mg/dl (0.52-1.04); Estimated Glomerular Filt Rate 83 ml/min (>60); GFR (African American) 100 ML/MIN (>60)
[2025-06-09 23:10] LABS: Alanine Aminotransferase 24 U/L (12-78); Albumin/Globulin Ratio 1.5 (1.1-1.8); Alkaline Phosphatase 59 U/L (38-126); Anion Gap 9.9 mEq/L (5-15); Aspartate Amino Transferase 38 U/L (14-36); Bilirubin,Total 1.1 mg/dl (0.2-1.3); Calcium 9.9 mg/dl (8.4-10.2); Carbon Dioxide 29 mmol/L (22.0-30.0); Globulin 3.1 g/dL (1.3-3.2); Glucose 281 mg/dl (74-100); Lipase 243 U/L (23-300); Total Protein,Serum 7.6 g/dl (6.3-8.2)
[2025-06-09 23:18] VITALS: PULSE 94; O2SAT 100
[2025-06-09 23:20] VITALS: BP 121/80
[2025-06-09 23:30] LABS: Bacteria,Urine 1+ /lpf; RBC,Urine Occasional #/hpf (0-3); WBC,Urine Occasional #/hpf (0-3)
[2025-06-09 23:42] VITALS: BP 121/80; PULSE 89; RESP 16; TEMP 37; O2SAT 100
== END 2025-06-09 23:46 | disposition home or self-care (01) ==
PROVIDERS: Emergency Provider Student in an Organized Health Care Education/Training Program; PCP Physician Assistant
DX: R10.30 Lower abdominal pain, unspecified (principal); R11.2 Nausea with vomiting, unspecified; E10.65 Type 1 diabetes mellitus with hyperglycemia
CPT/HCPCS: 80053; 81001; 83690; 84703; 85025; 87086; 96374; 96375; 99284; J1885; J2405